=== PATIENT | female | born 1965 | race Caucasian/White ===

== ENCOUNTER → 2017-12-29 15:59 | Outpatient (CLI) | payer BC, SELFPAY ==
[2017-12-30 08:23] LABS: Vitamin D,25 Hydroxy 16.8 ng/mL (29.95-100.01)
== END ==
PROVIDERS: Visit Provider Obstetrics & Gynecology
DX: Z78.0 Asymptomatic menopausal state (principal)
CPT/HCPCS: 36415; 82306

== ENCOUNTER → 2018-11-29 09:52 | Outpatient (CLI) | payer BC, SELFPAY ==
--- NOTE | 2018-11-29 09:59 | BI_ITS ---
MAMMOGRAPHY - BILATERAL SCREENING REASON FOR EXAM: Female, 53 years old. Routine annual screening examination. PERTINENT HISTORY: Grandmother with breast cancer. TECHNIQUE: Digital bilateral breast susan (3D mammographic acquisition) in the CC and MLO projections. 2-D mediolateral oblique (MLO) and craniocaudad (CC) views of both breasts were obtained. CAD: Full Field Digital Mammography with Computer Added Detection was performed. COMPARISON: Comparison is made with prior study dated November 05, 2016 and May 22, 2013. FINDINGS: Breast Composition: There are scattered areas of fibroglandular density. There are no dominant masses or suspicious calcifications. Stable 5 mm well-defined nodule in the lateral upper aspect of the left breast. Prior ultrasound demonstrated this to be a small cyst. No other significant abnormalities are identified. There has been no significant change since the prior study. BI/SCREENING MAMM (CAD), BILAT IMPRESSION: Stable bilateral screening mammogram. Yearly follow-up mammogram recommended. (A) ASSESSMENT CATEGORY: BIRADS Category 2: Benign. A letter regarding these results will be sent to the patient by the facility within 30 days. Approximately 10% of breast cancers are not detected by mammography. A normal mammogram should not delay biopsy of a clinically suspicious abnormality. [id number] Electronically Signed: Lokesh Maldonado, at 12:36 EDT , Service support ,
== END ==
PROVIDERS: Family Provider Family Medicine; PCP Family Medicine; Referring Provider Obstetrics & Gynecology; Visit Provider Obstetrics & Gynecology
DX: Z12.31 Encounter for screening mammogram for malignant neoplasm of breast (principal)
CPT/HCPCS: 77063; 77067

== ENCOUNTER → 2019-07-31 12:08 | Outpatient (CLI) | payer BC, SELFPAY ==
[2019-04-10 12:36] VITALS: BMI 30.7
== END ==
LOC: MFPLAB 12:09 → LABSPEC 12:10
PROVIDERS: Family Provider Family Medicine; PCP Family Medicine; Referring Provider Family Medicine; Visit Provider Family Medicine
DX: N39.0 Urinary tract infection, site not specified (principal)
CPT/HCPCS: 87086; 87088

== ENCOUNTER → 2020-03-31 15:47 | Outpatient (CLI) | payer OTHER, SELFPAY ==
[2019-04-10 12:36] VITALS: BMI 30.7
[2020-03-31 17:51] LABS: Absolute Lymphocyte Count 2.21 X10^3/uL (0.83-4.51); Basophil# 0.05 X10^3/uL; Basophil% 0.5 % (0-1); Eosinophil# 0.12 X10^3/uL; Eosinophils% 1.3 % (0-5); Hematocrit 38.1 % (37-47); Lymphocyte # 2.21 X10^3/ul (4.0); Lymphocyte % 24.2 % (19-41); Mean Corp Hgb Conc 31.5 g/dL (32-36); Mean Corpuscular Volume 95.3 fL (81-99); Mean Platelet Vol. 10.6 fl (6.2-12.0); Monocyte# 0.73 X10^3/uL; NRBC Flagged by Analyzer 0 % (0-5); Neutrophil # 5.99 X10^3/uL (2.7-7.7); Neutrophil % 65.7 % (47-70); Platelet Count 276 K/mm3 (150-450); RBC Distribution Width CV 12.4 % (11.6-14.6); RBC Distribution Width SD 43.5 fl (35.1-43.9); White Blood Count 9.1 K/mm3 (4.4-11.0)
== END ==
PROVIDERS: PCP Family Medicine; Referring Provider Family Medicine; Visit Provider Family Medicine
DX: R10.9 Unspecified abdominal pain (principal)
CPT/HCPCS: 36415; 85025

== ENCOUNTER → 2020-04-01 11:57 | Outpatient (CLI) | payer OTHER, SELFPAY ==
[2019-04-10 12:36] VITALS: BMI 30.7
--- NOTE | 2020-04-01 12:05 | CT_ITS ---
STUDY: CT ABDOMEN AND PELVIS WITH CONTRAST REASON FOR EXAM: Female, 54 years old. RLQ PAIN X 1 MONTH. RADIATION DOSAGE (If Supplied By Facility): CTDIvol = ( 14.60 ) mGy, DLP = ( 895.91 ) mGycm TECHNIQUE: Transaxial images were obtained from the dome of the diaphragm to the symphysis pubis with oral contrast. Oral and amp; IV Gastrografin and amp; 100mL Isovue-300 was administered. Sagittal and coronal images were reconstructed. Individualized dose optimization techniques were used for this CT. COMPARISON: None. FINDINGS: The visualized lung bases are unremarkable. The visualized portions of the heart are within normal limits. Normal liver. Normal gallbladder and extrahepatic biliary system. Normal spleen. Normal pancreas. Normal bilateral adrenal glands. Normal right kidney. Normal left kidney. There is a small hiatal hernia. Normal small intestine. Moderate amount of fecal material is seen in the colon. There are scattered colonic diverticula consistent with diverticulosis. The appendix is visualized and appears normal. Normal abdominal aorta. Normal inferior vena cava. Normal retroperitoneum. Normal urinary bladder. Small bilateral inguinal hernias containing fat more prominent on the right side. Small umbilical hernia containing fat. Normal osseous structures. CT/Abdomen/Pelvis WITH Contrast IMPRESSION: Scattered sigmoid diverticula. No acute abnormality is seen. Electronically Signed: Lokesh Maldonado, at 14:53 EDT , Service support ,
== END ==
LOC: CT 11:59
PROVIDERS: PCP Family Medicine; Referring Provider Family Medicine; Visit Provider Family Medicine
DX: R10.9 Unspecified abdominal pain (principal)
CPT/HCPCS: 74177; Q9967; A4216

== ENCOUNTER 2020-11-20 10:09 | Outpatient (RCR) | payer BC, SELFPAY ==
[2019-04-10 12:36] VITALS: BMI 30.7
[2020-11-20] MEDS: COVID-19 VACC, MRNA(PFIZER)/PF 30 MCG/0.3 ML SYRINGE IM (12:01)
[2020-12-11] MEDS: COVID-19 VACC, MRNA(PFIZER)/PF 30 MCG/0.3 ML SYRINGE IM (12:10)
== END 2020-11-20 23:59 ==
LOC: IMMUN 10:09
PROVIDERS: PCP Family Medicine; Visit Provider Family Medicine
DX: Z23 Encounter for immunization (principal)
CPT/HCPCS: 0001A; 0002A; 91300

== ENCOUNTER → 2021-01-27 14:03 | Outpatient (CLI) | payer BC, SELFPAY ==
[2019-04-10 12:36] VITALS: BMI 30.7
[2021-01-27 16:17] LABS: Absolute Neutrophil Count 4.8 X10^3/uL (2.0-7.7); Basophil# 0.05 X10^3/uL; Basophil% 0.7 % (0-1); Eosinophil# 0.16 X10^3/uL; Eosinophils% 2.1 % (0-5); Hematocrit 36.6 % (37-47); Hemoglobin 11.5 g/dL (12.0-15.0); Lymphocyte % 26.4 % (19-41); Mean Corp Hgb Conc 31.4 g/dL (32-36); Mean Corpuscular Hgb 28.6 pg (27.0-32.0); Mean Platelet Vol. 10.9 fl (6.2-12.0); Monocyte# 0.52 X10^3/uL; Monocyte% 6.9 % (0-10); NRBC Flagged by Analyzer 0 % (0-5); Neutrophil # 4.81 X10^3/uL (2.7-7.7); Neutrophil % 63.2 % (47-70); Platelet Count 282 K/mm3 (150-450); RBC Distribution Width CV 12.8 % (11.6-14.6); RBC Distribution Width SD 42.4 fl (35.1-43.9); Red Blood Count 4.02 M/mm3 (4.2-5.4); White Blood Count 7.6 K/mm3 (4.4-11.0)
[2021-01-27 16:36] LABS: ALB/GLOB Ratio 0.9 RATIO (0.9-2.4); AST(SGOT) 15 U/L (15-37); Alanine Aminotransfer ALT/SGPT 15 U/L (13-56); Albumin, Serum 3.3 g/dL (3.2-5.0); Alkaline Phosphatase 114 U/L (45-117); Anion Gap 5 (5-15); BUN 19 mg/dL (7-18); BUN/Creat Ratio 25.4 RATIO (10-20); Calcium,Total 8.7 mg/dL (8.5-10.1); Chloride 108 mmol/L (98-107); Creatinine, Serum 0.75 mg/dL (0.55-1.02); EST Glomerular Filtration Rate 85 mL/min (>60); Est Glom Filt Rate - Afr Amer 103 mL/min (>60); Globulin 3.8 g/dL (2.2-4.2); Glucose 125 mg/dL (74-106); Potassium 3.6 mmol/L (3.5-5.1); Protein, Total 7.1 g/dL (6.4-8.2); Sodium Level 142 mmol/L (136-145); Thyroid Stim Hormone (TSH) 4.09 uIU/mL (0.358-3.74)
== END ==
PROVIDERS: PCP Family Medicine; Referring Provider Family Medicine; Visit Provider Family Medicine
DX: R60.9 Edema, unspecified (principal)
CPT/HCPCS: 36415; 80053; 84443; 85025

== ENCOUNTER → 2021-03-27 16:23 | Outpatient (CLI) | payer BC, SELFPAY ==
[2019-04-10 12:36] VITALS: BMI 30.7
[2021-03-27 17:48] LABS: T4 Total, Thyroxin 10.8 ug/dL (4.8-13.9); Thyroid Stim Hormone (TSH) 1.53 uIU/mL (0.358-3.74)
== END ==
PROVIDERS: PCP Family Medicine; Referring Provider Family Medicine; Visit Provider Family Medicine
DX: E03.9 Hypothyroidism, unspecified (principal)
CPT/HCPCS: 36415; 84436; 84443

== ENCOUNTER → 2022-02-16 | Outpatient (CLI) | payer BC, SELFPAY | END | disposition home or self-care (01) | LOC: LABSPEC 17:42 | PROVIDERS: PCP Family Medicine; Visit Provider Nurse Practitioner Family | DX: N39.0 Urinary tract infection, site not specified (principal) | CPT/HCPCS: 87086; 87088; 87186 ==

== ENCOUNTER → 2022-03-02 | Outpatient (CLI) | payer OTHER, SELFPAY ==
[2022-03-02 18:59] LABS: T4 Total, Thyroxin 10.4 ug/dL (4.8-13.9); Thyroid Stim Hormone (TSH) 2.64 uIU/mL (0.358-3.74)
== END | disposition home or self-care (01) ==
PROVIDERS: PCP Family Medicine; Visit Provider Family Medicine
DX: E03.9 Hypothyroidism, unspecified (principal)
CPT/HCPCS: 36415; 84436; 84443

== ENCOUNTER → 2022-09-07 | Outpatient (CLI) | payer OTHER, SELFPAY ==
[2022-09-07 18:05] LABS: Absolute Lymphocyte Count 2.31 X10^3/uL (0.83-4.51); Absolute Neutrophil Count 6.9 X10^3/uL (2.0-7.7); Basophil# 0.07 X10^3/uL; Basophil% 0.7 % (0-1); Eosinophil# 0.16 X10^3/uL; Eosinophils% 1.5 % (0-5); Hemoglobin 9.7 g/dL (12.0-15.0); Lymphocyte # 2.31 X10^3/ul (0.83-4.51); Lymphocyte % 21.8 % (19-41); Mean Corp Hgb Conc 29.4 g/dL (32-36); Mean Corpuscular Hgb 23.8 pg (27.0-32.0); Mean Corpuscular Volume 80.9 fL (81-99); Mean Platelet Vol. 10.3 fl (6.2-12.0); Monocyte# 1.13 X10^3/uL; Monocyte% 10.6 % (0-10); NRBC Flagged by Analyzer 0.3 % (0-5); Neutrophil % 64.9 % (47-70); Platelet Count 427 K/mm3 (150-450); RBC Distribution Width CV 14.1 % (11.6-14.6); RBC Distribution Width SD 41.7 fl (35.1-43.9); Red Blood Count 4.08 M/mm3 (4.2-5.4); White Blood Count 10.6 K/mm3 (4.4-11.0)
[2022-09-07 19:02] LABS: ALB/GLOB Ratio 0.9 RATIO (0.9-2.4); AST(SGOT) 14 U/L (15-37); Alanine Aminotransfer ALT/SGPT 21 U/L (13-56); Albumin, Serum 3.7 g/dL (3.2-5.0); Alkaline Phosphatase 122 U/L (45-117); Anion Gap 6 (5-15); BUN 25 mg/dL (7-18); BUN/Creat Ratio 30.1 RATIO (10-20); Calcium,Total 8.8 mg/dL (8.5-10.1); Chloride 108 mmol/L (98-107); Creatinine, Serum 0.83 mg/dL (0.55-1.02); EST Glomerular Filtration Rate 75 mL/min (>60); Est Glom Filt Rate - Afr Amer 91 mL/min (>60); Globulin 3.9 g/dL (2.2-4.2); Glucose 93 mg/dL (74-106); Potassium 4.2 mmol/L (3.5-5.1); Protein, Total 7.6 g/dL (6.4-8.2); Sodium Level 141 mmol/L (136-145); Thyroid Stim Hormone (TSH) 3.41 uIU/mL (0.358-3.74)
== END | disposition home or self-care (01) ==
PROVIDERS: PCP Family Medicine; Referring Provider Family Medicine; Visit Provider Family Medicine
DX: R42 Dizziness and giddiness (principal)
CPT/HCPCS: 36415; 80053; 84443; 85025

== ENCOUNTER 2023-08-01 16:23 | Emergency (ER) | payer OTHER, SELFPAY ==
[2023-08-01 16:24] VITALS: BP 164/86; PULSE 102; RESP 18; TEMP 36; O2SAT 98; BMI 37.8
[2023-08-01 16:29] VITALS: O2SAT 97
--- NOTE | 2023-08-01 16:29 | EKG12_ITS ---
Test Reason : cp Blood Pressure : / mmHG Vent. Rate : 097 BPM Atrial Rate : 097 BPM P-R Int : 156 ms QRS Dur : 076 ms QT Int : 370 ms P-R-T Axes : 061 078 074 degrees QTc Int : 469 ms Normal sinus rhythm Normal ECG Confirmed by SELMA VÁZQUEZ, MARIBELL ([id number]), editor greeting card ALEXA ARCE ([id number]) on 08/02/2023 10:50:08 AM Referred By: Confirmed By:MARIBELL HAHN MD
--- NOTE | 2023-08-01 16:29 | RAD_ITS ---
INDICATION: chest pain EXAMINATION/TECHNIQUE: X-RAY - XR Chest 1 View COMPARISON: None. FINDINGS: The lungs are clear. The cardiomediastinal silhouette is unremarkable. No pleural effusion or pneumothorax. No acute osseous abnormalities. Hiatal hernia. RAD/Chest 1 View (Portable) IMPRESSION: No acute radiographic abnormalities. Hiatal hernia. Electronically Signed: Andreas Melendez MD at 18:45 EST ,
--- NOTE | 2023-08-01 16:55 | ED.VIS.CHEST ---
HPI History of Present Illness Chief Complaint: Chest Pain Informant: patient Onset/Context/Timing Onset: Today and Hours Activity at onset: gradual Timing: Intermittent Quality: Positive for - (Pinching) Location: Left Chest Current Severity: Gone Maximum Severity: Mild Worsened By: Nothing Relieved By: Nothing Associated Symptoms: Negative for Nausea, Vomiting, Diaphoresis, Dyspnea, Cough, Fever, Lightheadedness, Acid Reflux or Palpitations Narrative Narrative: 58-year-old female history of hypothyroidism. Work today around 330 and got pinching discomfort to the left side of her chest. Says this would come and go. Nothing particular made it better or worse. Not associated with exertion. She had a prior history of this and it was associated with anxiety. Denies any history of DVT or PE. She has had recent travel 6 hours to [place] and 6 hours back. Denies any calf pain or hemoptysis. No pleuritic chest discomfort. She has no cardiac history but had a brother in the past year of an NC that was younger than her. She has had a stress test years ago that was negative. Prior Similar Symptoms: Yes Recent Illness/Hospitalization: No CVD Risk Factors: Positive for Family History 1' </=55; Negative for Hypertension, Diabetes, Hypercholesterolemia or Smoking PE Risk Factors: Positive for Recent Travel/Surgery; Negative for Recent Immobilization, Prior DVT or PE, Cancer or OCP + Smoking + >/=35 TAD Risk Factors: Negative for Marfan's Syndrome [facility] Medical History (Updated 08/01/23 @ 20:[address] Olaf Castelan MD) Hypothyroid Home Medications estradiol 2 mg tablet 2 mg DAILY 12/12/14 [History Last Taken Unknown] ibuprofen 200 mg tablet 200 mg PO Q4H PRN PRN Pain 12/12/14 [History Last Taken Unknown] apixaban 5 mg (74 tabs) tablets in a dose pack (Eliquis DVT-PE Treat 30D Start) 5 mg PO BID 30 days #60 tabs 08/01/23 [Rx Last Taken Unknown] Allergy/AdvReac Type Severity Reaction Status Date / Time amoxicillin Allergy Unknown Verified 08/01/23 16:24 Penicillins Allergy Unknown Verified 08/01/23 16:24 Social History Smoking Status: Unknown if ever smoked ROS ROS ED ROS Narrative Atypical chest pain today. Not exertional. No other recent symptoms. No shortness of breath. Review of Systems ROS Unobtainable: Denies due to encephalopathy Constitutional Constitutional ED: Denies chills or fever(s) Eyes Eyes: Reports none ENT ENT ED: Denies ear pain Cardiovascular Cardiovascular: Reports as per HPI and chest pain; Denies palpitations or racing heartbeat Respiratory/Chest Respiratory/Chest: Denies cough, dyspnea or dyspnea on exertion Gastrointestinal Gastrointestinal: Denies abdominal pain, constipation, diarrhea, melena or nausea Genitourinary Genitourinary ED: Denies dysuria or hematuria Musculoskeletal Musculoskeletal: Denies arthralgias, back pain, myalgias or neck pain Integumentary Denies abscess Neurologic Neurologic: Denies headache(s) Psychiatric Psychiatric: Denies depression Endocrine Endocrinology: Denies cold intolerance Hematologic/Lymphatic Hematologic/Lymphatic: Denies easy bleeding Allergic/Immunologic Allergic/Immunologic ED: Denies mouth swelling, tongue swelling or urticaria EXAM Physical Exam Narrative Exam Narrative: Well-appearing 58-year-old female. Vital signs are stable afebrile. Pulse ox 98% on room air no signs hypoxia. H EENT exam unremarkable. Neck nontender no JVD. Lungs clear to auscultation bilaterally. Heart regular rhythm rate about 100 no murmur. Chest wall she does have reproducible left-sided parasternal chest wall tenderness with says it felt the same discomfort. No ecchymosis or bruising. No subcu air crepitus. Abdomen soft nontender. Moving all 4 extremities. Equal symmetrical radial pulses. 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 Calves are nontender without edema or cords. Neurologically she is awake alert. Moving all 4 extremities. Const Vital Signs: 08/01/23 16:24 08/01/23 16:29 08/01/23 17:03 Temperature 96.8 F L Temperature Source Temporal Pulse Rate 102 H 87 Respiratory Rate 18 16 Respiratory Effort Blood Pressure 164/86 H 125/86 H Blood Pressure Mean 112 99 Pulse Ox 98 97 98 Oxygen Delivery Method Room Air Room Air Room Air 08/01/23 16:50 Temperature Temperature Source Pulse Rate Respiratory Rate Respiratory Effort Normal Blood Pressure Blood Pressure Mean Pulse Ox Oxygen Delivery Method Positive well nourished and well developed; Negative for cachectic, contractures or unkempt General Appearance ED: well developed and NAD; Negative for unkempt, cachectic, contractures or pallor Nutritional Appearance: Negative for cachectic HEENT Reports moist mucous membranes normocephalic and atraumatic; Negative for trauma or tenderness Eyes PERRL and EOMs intact bilaterally General Eye ED: Negative for pale conjunctiva, scleral icterus or other Neck no lymphadenopathy, supple and no JVD General: Negative for tenderness Chest Wall inspection of chest normal; Negative for palpation of chest normal Chest Narrative: Mild chest wall tenderness left parasternal. Chest: Negative for tenderness Resp normal respiratory effort and clear to auscultation bilaterally Effort and Inspection: Negative for respiratory distress Auscultation: Negative for rales, rhonchi or wheezes Cardio regular rate, regular rhythm, S1 normal heart sound, S2 normal heart sound and no murmurs Rate: Negative for bradycardia or tachycardic Rhythm: Negative for abnormal rhythm Peripheral Pulses: pulses 2+ throughout GI normal to inspection, nondistended, normoactive bowel sounds, soft to palpation, non-tender and non-distended Back/Spine no CVA tenderness and no thoracic nor lumbar tenderness General Back: Negative for CVA tenderness Cervical Spine: Negative for cervical spine tenderness Extremity normal to inspection General Extremety ED: Negative for edema or pulses abnormal General Extremity: Negative for edema or pulses abnormal Neuro oriented x3, CN's II-XII intact bilaterally and no sensory deficits noted Sensorium / Orientation: awake, alert, oriented to person, oriented to place and oriented to time; Negative for confused, lethargic or stuporous Motor Exam: strength 5/5 throughout Psych mental status grossly normal Appearance: Negative for unkempt Attitude: No agitated Mood & Affect: Negative for depressed, anxious or tearful Skin no rashes or lesions noted and no wounds General Skin Exam: Negative for jaundice or pallor Rashes: No rashes noted Trauma: Negative for abrasion or laceration MDM MDM MDM Narrative Medical decision making narrative: 58-year-old female with atypical nonexertional chest pain. Has had no recent exertional symptoms. She undergo cardiac workup. She also had recent travel with no clinically this does not sound like a PE. D-dimer will be obtained also. She does have family history of cardiac disease and a younger brother who of an NC in the last year. Repeat exam patient is doing well at both 6 PM and 8:15 PM. The CTA of her chest shows bilateral lower lobe PEs. She will be started on Eliquis tonight. Discharged home. Outpatient follow-up with her primary care physician. I did speak to Dr. Ruy Sahni on-call for the patient's primary care physician to ensure close follow-up. Patient also instructed to ensure she is taking her iron because her hemoglobin is only 7.8 and she is at risk of needing a transfusion if it gets any worse. History & Record Review Discussion w/independent historian: Patient Additional record(s) reviewed:: Prior inpatient record, Prior outpatient record, Prior ED visit and Prior labs Lab Data Attestation: I reviewed the patient's lab results. Lab results narrative: CBC shows a white count of 9.4. H&H is 7.8 and 28.5. Platelets 358. D-dimer is elevated 0.66. Troponin is normal at 4. Electrolytes show a gap of 5 BUN and creatinine 19 and 1. Glucose 97. Chest x-ray is normal. Labs: Laboratory Results - last 24 hr 08/01/23 08/01/23 16:50 18:50 WBC 9.4 RBC 3.77 L Hgb 7.8 L Hct 28.5 L MCV 75.6 L MCH 20.7 L MCHC 27.4 L RDW Std Deviation 45.6 H RDW Coeff of Snow 16.8 H Plt Count 358 MPV 9.5 Immature Gran % (Auto) 0.600 Neut % (Auto) 64.2 Lymph % (Auto) 23.2 [place] % (Auto) 9.3 Eos % (Auto) 2.0 Baso % (Auto) 0.7 Absolute Neuts (auto) 6.1 Absolute Lymphs (auto) 2.19 Nucleated RBC % 0 D-Dimer Quant (PE/DVT) 0.66 H* Sodium 140 Potassium 3.7 Chloride 108 H Carbon Dioxide 27.0 Anion Gap 5 BUN 19 H Creatinine 1.02 Estim Creat Clear Calc 53.44 Est GFR (MDRD) Af Amer 71 Est GFR (MDRD) Non-Af 59 L BUN/Creatinine Ratio 18.6 Glucose 97 Calcium 8.4 L Troponin I High Sens 4 7 Radiography Chest X-Ray - ED: 1 View, Read by ED Physician, Normal, Heart, Lungs, Mediastinum, Bony Structures and No Acute Disease Diagnostic Testing: Clinical Impression(s) from Imaging Studies Chest X-Ray 08/01/23 16:29 IMPRESSION: No acute radiographic abnormalities. Hiatal hernia. Electronically Signed: Andreas Melendez MD at 18:45 EST , Chest CTA 08/01/23 18:17 IMPRESSION: Small volume nearly occlusive acute pulmonary emboli in the bilateral lower lobe subsegmental pulmonary arteries. No evidence of right heart strain. Electronically Signed: Andreas Melendez MD at 19:51 EST , Chest x-ray, portable, single view shows no acute abnormality. Normal cardiac silhouette. Normal lung green. Normal mediastinum. Rhythm Strip Rhythm Strip: Sinus Rhythm Rate: 97 Ectopy: None EKG Initial EKG: Attestation: I personally reviewed and interpreted this EKG as follows: Interpretation: Sinus Rhythm and No Acute Injury Pattern Comments: Normal sinus rhythm rate of 97 no acute signs of NC or ischemia. Unremarkable EKG. Discharge Plan Triage Chief Complaint: Chest Pain ED Provider: Olaf Castelan Dx/Rx/DC Orders Clinical Impression: Chronic anemia, Bilateral pulmonary embolism, Chest pain Instructions: Pulmonary Embolism, Anemia Prescriptions: New Eliquis DVT-PE Treat 30D Start 5 mg (74 tabs) tablets,dose pack 5 mg PO BID 30 Days Qty: 60 0RF No Action ibuprofen 200 MG tablet 200 mg PO Q4H PRN PRN (Reason: Pain) estradiol 2 MG tablet 2 mg DAILY Patient Comments: Primary Care Provider: Kellie Hudson Referrals: Kellie Hudson MD [Primary Care Provider] - As soon as possible Activity Restrictions/Additional Instructions: You have blood clots in your lower lungs. You will be started on the blood thinner Eliquis. If you would hit your head or have any significant bleeding or large bruising you need to be reevaluated. Make sure to get back on your iron as prescribed because your hemoglobin today was only 7.8. If it gets any lower you might need a blood transfusion. Call and follow-up with your primary care physician Dr. Hudson is soon as possible. Most likely you will be on the blood thinning medication for around 6 months. Disposition Disposition: Home, Self Care
[2023-08-01 17:03] VITALS: BP 125/86; PULSE 87; RESP 16; O2SAT 98
[2023-08-01 17:07] LABS: Absolute Lymphocyte Count 2.19 X10^3/uL (0.83-4.51); Absolute Neutrophil Count 6.1 X10^3/uL (2.0-7.7); Basophil# 0.07 X10^3/uL; Basophil% 0.7 % (0-1); Eosinophil# 0.19 X10^3/uL; Hematocrit 28.5 % (37-47); Hemoglobin 7.8 g/dL (12.0-15.0); Lymphocyte # 2.19 X10^3/ul (0.83-4.51); Lymphocyte % 23.2 % (19-41); Mean Corp Hgb Conc 27.4 g/dL (32-36); Mean Corpuscular Hgb 20.7 pg (27.0-32.0); Mean Corpuscular Volume 75.6 fL (81-99); Mean Platelet Vol. 9.5 fl (6.2-12.0); Monocyte# 0.88 X10^3/uL; Monocyte% 9.3 % (0-10); NRBC Flagged by Analyzer 0 % (0-5); Neutrophil # 6.05 X10^3/uL (2.7-7.7); Neutrophil % 64.2 % (47-70); Platelet Count 358 K/mm3 (150-450); RBC Distribution Width CV 16.8 % (11.6-14.6); RBC Distribution Width SD 45.6 fl (35.1-43.9); Red Blood Count 3.77 M/mm3 (4.2-5.4); White Blood Count 9.4 K/mm3 (4.4-11.0)
[2023-08-01 17:29] LABS: D-Dimer Quantitative (DVT/PE) 0.66 FEU/ug/m (0.27-0.49)
[2023-08-01 17:30] LABS: Anion Gap 5 (5-15); BUN 19 mg/dL (7-18); BUN/Creat Ratio 18.6 RATIO (10-20); Calcium,Total 8.4 mg/dL (8.5-10.1); Chloride 108 mmol/L (98-107); Creatinine, Serum 1.02 mg/dL (0.55-1.02); EST Glomerular Filtration Rate 59 mL/min (>60); Est Glom Filt Rate - Afr Amer 71 mL/min (>60); Estimated Creatinine Clearance 53.44 ml/min; Glucose 97 mg/dL (74-106); Potassium 3.7 mmol/L (3.5-5.1); Sodium Level 140 mmol/L (136-145); Troponin-I HS 4 pg/mL (3.0-54.0)
--- NOTE | 2023-08-01 18:17 | CT_ITS ---
INDICATION: cp and elevated d-dimer EXAMINATION: CTA Chest WO/W Contrast Injection TECHNIQUE: Helically acquired images were obtained of the chest following administration of IV contrast. A radiation dose optimization technique was used for this scan. 3D postprocessing images including MIPS were reviewed. IV Contrast dosage and agent: IV 100mL Isovue-370 COMPARISON: None. FINDINGS: Lungs: Unremarkable Mediastinum: The cardiomediastinal silhouette is not enlarged. No mediastinal, hilar or axillary adenopathy. Mild aortic arch and coronary artery calcifications. Small volume nearly occlusive clot seen in the bilateral lower lobe subsegmental pulmonary arteries. No evidence of right heart strain. Pleura: Unremarkable Bones/Soft tissues: Mild scattered degenerative changes of the visualized spine. Upper abdomen: No visualized abnormalities in the upper abdomen. CT/CTA Chest W/WO Contrast IMPRESSION: Small volume nearly occlusive acute pulmonary emboli in the bilateral lower lobe subsegmental pulmonary arteries. No evidence of right heart strain. Electronically Signed: Andreas Melendez MD at 19:51 EST ,
[2023-08-01 19:11] LABS: Troponin-I HS 7 pg/mL (3.0-54.0)
[2023-08-01 20:23] VITALS: PULSE 87; RESP 22; O2SAT 97
[2023-08-01 20:56] VITALS: BP 131/63; PULSE 75; RESP 14; O2SAT 97
== END 2023-08-01 21:28 | disposition home or self-care (01) ==
PROVIDERS: Emergency Provider Emergency Medicine; PCP Family Medicine; Visit Provider Emergency Medicine
DX: R07.9 Chest pain, unspecified (principal); I26.99 Other pulmonary embolism without acute cor pulmonale; D64.9 Anemia, unspecified
CPT/HCPCS: 71045; 71275; 80048; 84484; 85025; 85379; 93005; 99284; Q9967; A4216

== ENCOUNTER 2023-08-08 17:34 | Emergency (ER) | payer OTHER, SELFPAY ==
[2023-08-08 17:36] VITALS: BP 151/71; PULSE 82; RESP 15; TEMP 36.2; O2SAT 98; BMI 37.3
[2023-08-08 18:15] VITALS: BP 126/68; PULSE 76; RESP 15; O2SAT 99
--- NOTE | 2023-08-08 18:35 | ED.VIS.CHEST ---
HPI History of Present Illness Chief Complaint: Chest Pain Narrative Narrative: 58-year-old female past medical history of anemia, states she was here in the emergency department last week and diagnosed with bilateral pulmonary emboli. She started Eliquis with a loading dose. She had been seen because she was having chest pains. She has not missed a dose of her Eliquis, and she was also told that she had a hemoglobin of 7.8 when she was discharged from the emergency department. She followed up with her primary care provider who told her that the chest pain should go away after approximately 1 week, but today she felt like her chest pains were worse. She became lightheaded and dizzy, and states she had pain going down her left arm as well. She felt short of breath. She denies any black tarry stool or any bleeding diathesis. She presents for evaluation of her continued chest pain with recent diagnosis of bilateral pulmonary emboli and anemia. No exacerbating or alleviating factors. [facility] Medical History Hypothyroid Home Medications estradiol 2 mg tablet 2 mg DAILY 12/12/14 [History Last Taken Unknown] ibuprofen 200 mg tablet 200 mg PO Q4H PRN PRN Pain 12/12/14 [History Last Taken Unknown] apixaban 5 mg (74 tabs) tablets in a dose pack (Eliquis DVT-PE Treat 30D Start) 5 mg PO BID 30 days #60 tabs 08/01/23 [Rx Last Taken Unknown] Allergy/AdvReac Type Severity Reaction Status Date / Time amoxicillin Allergy Unknown Verified 08/08/23 17:36 Penicillins Allergy Unknown Verified 08/08/23 17:36 Social History Smoking Status: Never smoker ROS ROS ED ROS Narrative Constitutional: No fever, no chills. HEENT: No sore throat. No neck pain. No loss of vision. No rhinorrhea. Cardiovascular: Positive chest pain. No palpitations. No pedal edema. Respiratory: No cough, positive shortness of breath. Abdominal: No abdominal pain. No nausea. No vomiting. Genitourinary: No dysuria. No hematuria. Musculoskeletal: No myalgias. No arthralgias. Neurologic: No headaches. Positive dizziness and lightheadedness. Paresthesia of left arm. Skin: No rash. No change in color. Psychiatric: No depression. No anxiety. EXAM Physical Exam Narrative Exam Narrative: Afebrile. Vital signs noted. HEENT: Normocephalic. Atraumatic. PERRL, EOMI. Neck soft and supple. No point tenderness or step off. Cardiovascular: Regular rate and rhythm. No murmurs, rubs, or gallops appreciated. Respiratory: No tachypnea. Lungs clear to auscultation bilaterally. Gastrointestinal: Abdomen soft, nontender, with normoactive bowel sounds. No rebound or guarding. Neurological: Awake. Alert. Nonfocal, nonlateralizing. Skin: No rash. Normal color. No pallor. Musculoskeletal: No pedal edema. Full range of motion extremities. Const Vital Signs: 08/08/23 17:36 08/08/23 18:40 08/08/23 18:42 Temperature 97.1 F L Temperature Source Temporal Pulse Rate 82 Respiratory Rate 15 Respiratory Effort Normal Non-Labored Blood Pressure 151/71 H Blood Pressure Mean 97 Pulse Ox 98 Oxygen Delivery Method Room Air Room Air 08/08/23 18:15 08/08/23 19:57 Temperature Temperature Source Pulse Rate 76 74 Respiratory Rate 15 16 Respiratory Effort Blood Pressure 126/68 H 119/78 Blood Pressure Mean 82 91 Pulse Ox 99 93 Oxygen Delivery Method Room Air MDM MDM MDM Narrative Medical decision making narrative: I reviewed the patient's prior records. Her prior laboratory work does show she had a hemoglobin of 7.8. In the differential diagnosis is continued anemia causing her shortness of breath and lightheadedness. I will check a CBC to ensure that it is not worsening. Additionally, she can be having chest pains from her pulmonary emboli. There also may be in the differential slight anxiety component related to this. EKG was obtained and interpreted by myself independently as normal sinus rhythm at 84 bpm without ectopy or acute ST changes. No STEMI. I do not feel that she needs a repeat CTA of her chest as her pulse ox is 98% on room air and pulse is 82. Hence, I have low concern for saddle embolus because she has not missed a dose of her Eliquis and her pulmonary emboli are being treated. I will obtain a single troponin to help rule out heart strain or coronary artery disease/ischemia. Chest x-ray will be obtained to help rule out pneumothorax or pneumonia as a cause of her chest pains that are worsening, but these are lower on the differential because the history and physical does not support this. I reviewed her laboratory work and she has normal white count of 9.9, hemoglobin improved to 8.3 but still anemic. Platelet count normal at 376. Electrolyte panel shows chloride slightly elevated at 109 which I think is nonspecific, BUN of 19 with a normal creatinine of 0.9. High-sensitivity troponin is 6. Chest x-ray in 1 view interpreted by myself independently shows no evidence of pneumothorax or pneumonia. I do not feel antibiotics are indicated. Patient states she still has a headache upon repeat examination, and she declined any oral analgesics here stating she will take Tylenol at home. She will continue her Eliquis. I do not feel that she requires admission at this time. I feel she be discharged to follow-up with her primary care provider and continue her anticoagulant. Return instructions to the emergency department were reviewed. Disposition is discharged home in stable condition. History & Record Review Discussion w/independent historian: Patient Additional record(s) reviewed:: Prior ED visit and Prior labs Lab Data Attestation: I reviewed the patient's lab results. Labs: Laboratory Results - last 24 hr 08/08/23 18:40 WBC 9.9 RBC 3.92 L Hgb 8.3 L Hct 30.5 L MCV 77.8 L MCH 21.2 L MCHC 27.2 L RDW Std Deviation 50.2 H RDW Coeff of Snow 20.8 H Plt Count 376 MPV 10.0 Immature Gran % (Auto) 0.700 Neut % (Auto) 71.2 H Lymph % (Auto) 17.5 L [place] % (Auto) 8.1 Eos % (Auto) 1.8 Baso % (Auto) 0.7 Absolute Neuts (auto) 7.0 Absolute Lymphs (auto) 1.73 Nucleated RBC % 0 RBC Morphology N CHROM Anisocytosis RARE Microcytosis RARE Sodium 141 Potassium 3.9 Chloride 109 H Carbon Dioxide 26.0 Anion Gap 6 BUN 19 H Creatinine 0.92 Estim Creat Clear Calc 59.25 Est GFR (MDRD) Af Amer 80 Est GFR (MDRD) Non-Af 66 BUN/Creatinine Ratio 20.6 H Glucose 94 Calcium 8.7 Troponin I High Sens 6 Radiography Diagnostic Testing: Clinical Impression(s) from Imaging Studies Chest X-Ray 08/08/23 18:45 IMPRESSION: Large hiatal hernia. No acute pulmonary disease. Electronically Signed: Jorgito Carpio MD at 19:10 EST , Discharge Plan Triage Chief Complaint: Chest Pain ED Provider: Ernesto Schmidt Dx/Rx/DC Orders Clinical Impression: Bilateral pulmonary embolism, Chest pain Instructions: ED Chest Pain, Uncertain Cause, ED Pain, Acute, Uncertain Cause Prescriptions: No Action ibuprofen 200 MG tablet 200 mg PO Q4H PRN PRN (Reason: Pain) estradiol 2 MG tablet 2 mg DAILY Patient Comments: Eliquis DVT-PE Treat 30D Start 5 mg (74 tabs) tablets,dose pack 5 mg PO BID 30 Days Qty: 60 0RF Primary Care Provider: Kellie Hudson Referrals: Kellie Hudson MD [Primary Care Provider] - 3-5 Days if not improving Disposition Disposition: Home, Self Care
[2023-08-08] MEDS: 0.9% Normal Saline (1000mL) 1,000 ML 1000 ML IV (18:39)
--- NOTE | 2023-08-08 18:45 | RAD_ITS ---
INDICATION: chest pain EXAMINATION: Frontal view of the chest COMPARISON: Chest x-ray August 01, 2023. FINDINGS: Frontal view of the chest was obtained. The cardiac silhouette is not enlarged. No confluent airspace disease. No pneumothorax. Large hiatal hernia as before. No acute fracture identified. RAD/Chest 1 View (Portable) IMPRESSION: Large hiatal hernia. No acute pulmonary disease. Electronically Signed: Jorgito Carpio MD at 19:10 EST ,
[2023-08-08 19:14] LABS: Absolute Lymphocyte Count 1.73 X10^3/uL (0.83-4.51); Basophil# 0.07 X10^3/uL; Basophil% 0.7 % (0-1); Eosinophil# 0.18 X10^3/uL; Eosinophils% 1.8 % (0-5); Hematocrit 30.5 % (37-47); Hemoglobin 8.3 g/dL (12.0-15.0); Lymphocyte # 1.73 X10^3/ul (0.83-4.51); Lymphocyte % 17.5 % (19-41); Mean Corp Hgb Conc 27.2 g/dL (32-36); Mean Corpuscular Hgb 21.2 pg (27.0-32.0); Mean Corpuscular Volume 77.8 fL (81-99); Monocyte% 8.1 % (0-10); NRBC Flagged by Analyzer 0 % (0-5); Neutrophil # 7.04 X10^3/uL (2.7-7.7); Neutrophil % 71.2 % (47-70); POSITIVE MORPHOLOGY YES; Platelet Count 376 K/mm3 (150-450); RBC Distribution Width CV 20.8 % (11.6-14.6); RBC Distribution Width SD 50.2 fl (35.1-43.9); Red Blood Count 3.92 M/mm3 (4.2-5.4); White Blood Count 9.9 K/mm3 (4.4-11.0)
[2023-08-08 19:18] LABS: Differential Indicated SCAN CRITERIA MET
[2023-08-08 19:30] LABS: Anion Gap 6 (5-15); BUN 19 mg/dL (7-18); BUN/Creat Ratio 20.6 RATIO (10-20); Calcium,Total 8.7 mg/dL (8.5-10.1); Chloride 109 mmol/L (98-107); Creatinine, Serum 0.92 mg/dL (0.55-1.02); EST Glomerular Filtration Rate 66 mL/min (>60); Est Glom Filt Rate - Afr Amer 80 mL/min (>60); Estimated Creatinine Clearance 59.25 ml/min; Glucose 94 mg/dL (74-106); Potassium 3.9 mmol/L (3.5-5.1); Sodium Level 141 mmol/L (136-145); Troponin-I HS 6 pg/mL (3.0-54.0)
[2023-08-08 19:42] LABS: Anisocytosis RARE; Red Cell Morphology N CHROM NORMAL (NORM C&C)
[2023-08-08 19:43] LABS: Microcytosis RARE
[2023-08-08 19:57] VITALS: BP 119/78; PULSE 74; RESP 16; O2SAT 93
[2023-08-08 20:34] VITALS: BP 114/72; BP 114/74
== END 2023-08-08 20:42 | disposition home or self-care (01) ==
PROVIDERS: Emergency Provider Emergency Medicine; PCP Family Medicine; Visit Provider Emergency Medicine
DX: R07.9 Chest pain, unspecified (principal); I26.99 Other pulmonary embolism without acute cor pulmonale
CPT/HCPCS: 71045; 80048; 84484; 85025; 93005; 96360; 96361; 99283; J7030; A4216

== ENCOUNTER → 2023-10-25 | Outpatient (CLI) | payer OTHER, SELFPAY ==
[2023-10-25 15:26] LABS: Absolute Lymphocyte Count 2.08 X10^3/uL (0.83-4.51); Absolute Neutrophil Count 4.9 X10^3/uL (2.0-7.7); Basophil# 0.07 X10^3/uL; Basophil% 0.9 % (0-1); Eosinophil# 0.12 X10^3/uL; Eosinophils% 1.5 % (0-5); Hematocrit 41.6 % (37-47); Hemoglobin 12.9 g/dL (12.0-15.0); Lymphocyte # 2.08 X10^3/ul (0.83-4.51); Lymphocyte % 26.6 % (19-41); Mean Corpuscular Hgb 26.7 pg (27.0-32.0); Mean Corpuscular Volume 86.1 fL (81-99); Mean Platelet Vol. 10.5 fl (6.2-12.0); Monocyte# 0.67 X10^3/uL; Monocyte% 8.6 % (0-10); NRBC Flagged by Analyzer 0 % (0-5); Neutrophil # 4.85 X10^3/uL (2.7-7.7); Platelet Count 279 K/mm3 (150-450); RBC Distribution Width CV 18.1 % (11.6-14.6); RBC Distribution Width SD 58.4 fl (35.1-43.9); Red Blood Count 4.83 M/mm3 (4.2-5.4); White Blood Count 7.8 K/mm3 (4.4-11.0)
[2023-10-25 15:54] LABS: Vitamin D,25 Hydroxy 24.1 ng/mL
[2023-10-25 16:13] LABS: Iron 37 ug/dL (50-170); T4 Total, Thyroxin 10.5 ug/dL (4.8-13.9); Thyroid Stim Hormone (TSH) 3.87 uIU/mL (0.358-3.74)
== END | disposition home or self-care (01) ==
LOC: MTLAB 11:16
PROVIDERS: PCP Family Medicine; Referring Provider Family Medicine; Visit Provider Family Medicine
DX: D50.9 Iron deficiency anemia, unspecified (principal); E03.9 Hypothyroidism, unspecified; R25.2 Cramp and spasm
CPT/HCPCS: 36415; 82306; 83540; 84436; 84443; 85025

== ENCOUNTER 2023-12-16 05:59 | Day surgery (SDC) | payer OTHER, SELFPAY ==
[2023-12-16 06:29] VITALS: BP 127/82; PULSE 90; RESP 18; TEMP 36.3; O2SAT 99; BMI 35.9
[2023-12-16] MEDS: Lactated Ringers 1,000 ML 15 ML IV (06:37)
--- NOTE | 2023-12-16 06:48 | HP.PCM_ITS ---
History and Physical Date of Admission: 12/16/23 Intake Vital Signs 08/08/2317:36 11/20/2414:01 Height 5 ft 5 in 5 ft 5 in Weight: 222 lb 4 oz BMI 37.0 BP 132/84 H Blood Pressure Location Rt brachial Position Sitting Respiration 18 Pulse 86 Pulse Source Monitor Temp 97.5 F L Temp Source Temporal Pulse Oximetry (%) 97 Oxygen Delivery Method room air Intake Visit Reasons: Anemia Chief Complaint: anemia Glue Wheel Operator Required: No Is patient in pain?: No Allergies amoxicillin Allergy (Verified 11/21/23 15:02) UnknownPenicillins Allergy (Verified 11/21/23 15:02) Unknown Medications estradiol 2 mg tablet 2 mg DAILY 12/12/14 [History Confirmed 11/21/23] apixaban 5 mg (74 tabs) tablets in a dose pack (Eliquis DVT-PE Treat 30D Start) 5 mg PO BID 30 days #60 tabs 08/01/23 [Rx Confirmed 11/21/23] cholecalciferol (vitamin D3) 50 mcg (2,000 unit) capsule 50 mcg PO DAILY 11/21/23 [History Confirmed 11/21/23] PFSH Medical History (Updated 11/21/23 @ 15:00 by Sharyn Rodriguez LPN) Hypothyroid Surgical History (Updated 11/21/23 @ 15:00 by Sharyn Rodriguez LPN) H/O total hysterectomy Social History (Updated 11/21/23 @ 15:01 by Sharyn Rodriguez LPN) Smoking Status: Never smoker alcohol intake: current substance use type: does not use HPI HPI HPI: Patient is a 58-year-old female sent here for iron deficiency anemia. She reports she has never had a colonoscopy. She says she is not having any abdominal pain or gross blood in the stool. She recently had a PE and is on Eliquis. She does not have family history of colon cancer. ROS General General: Yes weight change (gain ) and fatigue; No appetite, colon cancer, breast cancer or weakness HEENT HEENT: No difficulty swallowing, eye injury, eye surgery, swollen glands or hoarseness Endo Endocrine: Yes thyroid disease; No diabetes mellitus, thyroid cancer, Hair loss, heat intolerance or cold intolerance Skin Skin: No rash or changing moles Musc Musculoskeletal: Yes back problems; No arthritis, rheumatoid arthritis, gout or joint pain Cardio Cardiovascular: No murmur, pacemaker, heart disease, atrial fibrillation, high blood pressure, heart attack, heart stent, palpitations, shortness of breat with exertion or chest pain Psych Psychiatric: Yes depression; No anxiety or hearing voices Resp Respiratory: No shortness of breath, No sleep apnea, Yes cough, No COPD, No asthma, No emphysema and No wheezing Gastro Gastrointestinal: No abdominal pain, No nausea or vomiting, No diarrhea, No constipation, No blood in stool, No acid reflux, No hemorrhoids, No ulcers, No gallbladder problem and No black,tarry stools Sanjay Hematologic: Yes blood thinners, No blood disorders, No bleeding, Yes anemia and Yes blood clots Neuro Neurologic: No weakness Exam Const General: cooperative Orientation: alert and oriented x3 HENMT Head: normal to inspection Neck Neck: normal visual inspection and full ROM Chest Chest palpation & inspection: normal inspection of the chest Resp Effort & Inspection: normal respiratory effort Auscultation: clear to auscultation bilaterally Cardio Rate: regular rate Rhythm: regular rhythm GI Inspection: non-distended Palpation: soft and nontender Skin General: no rashes or lesions noted Neuro General: patient alert and patient oriented x3 Extrem General: full ROM Psych Appearance: grossly normal Mental Status: mental status grossly normal Assessment and Plan Assessment and Plan (1) Anemia: Qualifiers: Anemia type: iron deficiency Iron deficiency anemia type: unspecified iron deficiency Qualified Code(s): D50.9 - Iron deficiency anemia, unspecified Plan: The patient has iron deficiency anemia and requires colonoscopy. She was sent for lab work last month and her hemoglobin was starting to come back up but since she has never had a scope I would recommend evaluation. I also discussed doing EGD with it to evaluate for anything bleeding in the stomach. She will hold her blood thinners for 2 days prior to surgery. I explained endoscopy in detail to the patient. I explained the risks including but not limited to stroke or heart attack with anesthesia, perforation of the GI tract, bleeding, infection. I explained that any of these could necessitate further emergency surgery. The patient understands and all questions were answered sufficiently. The patient wishes to proceed with procedure. Dillan Demarco MD Pager: [facility] [address] [place] [address] [address] [place] [address] Office: I have examined the patient and the H&P has been reviewed. There are no clinical changes since date of exam.
--- NOTE | 2023-12-16 07:30 | EGD_PTH ---
PATIENT: BOUCHRA HUERTA LOC: EN U#:[id number] AGE/SX: 58/F ROOM: RE12/16/[address]: Dr. Dillan Demarco MD : 1965 BED: DIS: 12/16/2023 SPEC #: [id number] RECD: 12/16/23 13:31 STATUS: REESE KELVIN #: [id number] LINH: 12/16/23 07:[address]: Dillan Demarco DEPT: SURGICAL PATHOLOGY RECD BY: Lula Dimas ENTERED: 12/16/23 14:22 SP TYPE: EGD BIOPSY OT DR: Dr. Kellie Hudson MD Tissues: A - Gastric mucous membrane B - Sigmoid colon biopsy Procedures: Surgery Specimen Level IV HEADER OPERATION: Colonoscopy, EGD and biopsy PRE-OP DIAGNOSIS: Anemia TISSUE SUBMITTED: A. Antral biopsy, B- Sigmoid polyp MICROSCOPIC DIAGNOSIS A. Gastric antrum, biopsy: Chronic gastritis. B. Sigmoid polyp, biopsy: Hyperplastic polyp with thermal artifact. /mr 12/19/2023 COMMENT A. The results of immunohistochemistry for Helicobacter pylori will be reported separately ([id number]). MICROSCOPIC DESCRIPTION Slides are reviewed. GROSS DESCRIPTION A. Received in fixative is one container labeled with the patient's name and designated Antral biopsy. The specimen consists of two irregular fragments of light cook soft tissue that in aggregate measure 0.6 x 0.3 x 0.1 cm. The specimen is totally submitted in one cassette. B. Received in fixative is one container labeled with the patient's name and designated Sigmoid polyp. The specimen consists of one irregular fragment of light cook soft tissue that measures 0.8 x 0.2 x 0.1 cm. The specimen is totally submitted in one cassette. /mr 12/16/23 TC:5 CPT:33246 x2
--- NOTE | 2023-12-16 07:30 | IMM_PTH ---
PATIENT: BOUCHRA HUERTA LOC: EN U#:[id number] AGE/SX: 58/F ROOM: RE12/16/[address]: Dr. Dillan Demarco MD : 1965 BED: DIS: 12/16/2023 SPEC #: [id number] RECD: 12/16/23 15:11 STATUS: REESE REGermain #: [id number] LINH: 12/16/23 07:[address]: Dillan Demarco DEPT: IMMUNOHISTOCHEMISTRY RECD BY: Kenan Marsh ENTERED: 12/16/23 15:11 SP TYPE: IMMUNO OTHR DR: Dr. Kellie Hudson MD Tissues: A - Stomach, NOS Procedures: H Pylori (initial) PHYSICIAN & INSTITUTION [place] [address] SPECIMEN INFORMATION: Tissue Source: Antral biopsy Clinical Info: Anemia Specimen Number: [id number] CPT code: 31629 METHODOLOGY: Deparaffinized sections of prefer/formalin-fixed tissue or PAP/DQ stained slides are incubated with monoclonal/polyclonal antibodies/oligonucleotide probes. Localization is made via biotin free immunoperoxidase method. Appropriate controls are performed and reacted as expected. Results on target cell population are indicated in the following table: RESULTS: ANTIBODY / CLONE RESULT Block A H Pylori (polyclonal) negative These tests were developed and their performance characteristics determined by [facility]. They may not have been cleared or approved by the U.S. Food and Drug Administration. The FDA has determined that such clearance or approval is not necessary. The above immunohistochemical/dualISH markers are ordered and reviewed by the Pathologist. INTERPRETATION: A. Antrum, biopsy: Negative for Helicobacter pylori organisms. BLANCA/ 12/19/23
[2023-12-16 07:57] VITALS: BP 122/81; BP 127/82; PULSE 88; RESP 18; TEMP 36.2; O2SAT 100
--- NOTE | 2023-12-16 07:58 | OP.CCLET_ITS ---
12/16/2023 Kellie Hudson [address] [place] [address] Re : Upper GI endoscopy procedure for Yessenia Dick Dear Dr. Hudson This procedure was performed on Saturday, December 16, 2023. My impressions and recommendations are as follows: Impressions : - Normal esophagus. - Large hiatal hernia. - Chronic gastritis. Biopsied. - Normal examined duodenum. Recommendations : - Discharge patient to home. - Resume previous diet. - Continue present medications. - Await pathology results. - Resume Eliquis (apixaban) at prior dose tomorrow. My findings are described in the full procedure note, which is enclosed. If I can be of further assistance, please feel free to contact me at Doctor phone number(s): , Work: . Sincerely, Dillan Demarco MD 12/16/2023 7:56:50 AM This report has been signed electronically.
--- NOTE | 2023-12-16 07:58 | OP.EGD_ITS ---
Patient Name: Yessenia Dick Procedure Date: 12/16/2023 7:11 AM Date of : 1965 Age: 58 Procedure: Upper GI endoscopy Indications: Suspected upper gastrointestinal bleeding in patient with chronic blood loss Providers: Dillan Demarco MD Medicines: Propofol per Anesthesia Patient Profile: This is a 58 year old female. Refer to note in patient chart for documentation of history and physical. Complications: No immediate complications. Estimated blood loss: Minimal. Procedure: Pre-Anesthesia Assessment: - Prior to the procedure, a History and Physical was performed, and patient medications and allergies were reviewed. The patient's tolerance of previous anesthesia was also reviewed. The risks and benefits of the procedure and the sedation options and risks were discussed with the patient. All questions were answered, and informed consent was obtained. Prior Anticoagulants: The patient has taken Eliquis (apixaban), last dose was 2 days prior to procedure. After reviewing the risks and benefits, the patient was deemed in satisfactory condition to undergo the procedure. After obtaining informed consent, the endoscope was passed under direct vision. Throughout the procedure, the patient's blood pressure, pulse, and oxygen saturations were monitored continuously. The colonoscope was introduced through the mouth, and advanced to the fourth part of duodenum. The upper GI endoscopy was accomplished without difficulty. The patient tolerated the procedure well. Scope In: 7:27:41 AM Scope Out: 7:30:55 AM Total Procedure Duration Time 0 hours 3 minutes 14 seconds Findings: The esophagus was normal. A large hiatal hernia was present. Mild inflammation was found at the pylorus. Biopsies were taken with a cold forceps for Helicobacter pylori testing. The examined duodenum was normal. Impression: - Normal esophagus. - Large hiatal hernia. - Chronic gastritis. Biopsied. - Normal examined duodenum. Recommendation: - Discharge patient to home. - Resume previous diet. - Continue present medications. - Await pathology results. - Resume Eliquis (apixaban) at prior dose tomorrow. Procedure Code(s): --- Professional --- 22746, Esophagogastroduodenoscopy, flexible, transoral; with biopsy, single or multiple Diagnosis Code(s): --- Professional --- K44.9, Diaphragmatic hernia without obstruction or gangrene K29.50, Unspecified chronic gastritis without bleeding R58, Hemorrhage, not elsewhere classified CPT copyright 2021 [employer]. All rights reserved. The codes documented in this report are preliminary and upon barrel maker review may be revised to meet current compliance requirements. Dillan Demarco MD 12/16/2023 7:56:50 AM This report has been signed electronically. Number of Addenda: 0 Note Initiated On: 12/16/2023 7:11 AM
--- NOTE | 2023-12-16 07:59 | OP.CCLET_ITS ---
12/16/2023 Kellie Hudson [address] [place] [address] Re : Colonoscopy procedure for Yessenia Dick Dear Dr. Hudson This procedure was performed on Saturday, December 16, 2023. My impressions and recommendations are as follows: Impressions : - One small polyp in the sigmoid colon, removed with a hot snare. Resected and retrieved. - The examination was otherwise normal on direct and retroflexion views. Recommendations : - Discharge patient to home. - Resume previous diet. - Continue present medications. - Await pathology results. - Repeat colonoscopy in 5 years for surveillance based on pathology results. My findings are described in the full procedure note, which is enclosed. If I can be of further assistance, please feel free to contact me at Doctor phone number(s): , Work: . Sincerely, Dillan Demarco MD 12/16/2023 7:58:28 AM This report has been signed electronically.
--- NOTE | 2023-12-16 07:59 | OP.COLON_ITS ---
Patient Name: Yessenia Dick Procedure Date: 12/16/2023 7:31 AM Date of : 1965 Age: 58 Procedure: Colonoscopy Indications: Iron deficiency anemia Providers: Dillan Demarco MD Medicines: Propofol per Anesthesia Patient Profile: This is a 58 year old female. Refer to note in patient chart for documentation of history and physical. Last Colonoscopy: 10 years ago. Complications: No immediate complications. Estimated blood loss: Minimal. Procedure: Pre-Anesthesia Assessment: - Prior to the procedure, a History and Physical was performed, and patient medications and allergies were reviewed. The patient's tolerance of previous anesthesia was also reviewed. The risks and benefits of the procedure and the sedation options and risks were discussed with the patient. All questions were answered, and informed consent was obtained. Prior Anticoagulants: The patient has taken Eliquis (apixaban), last dose was 2 days prior to procedure. After reviewing the risks and benefits, the patient was deemed in satisfactory condition to undergo the procedure. After I obtained informed consent, the scope was passed under direct vision. Throughout the procedure, the patient's blood pressure, pulse, and oxygen saturations were monitored continuously. The colonoscope was introduced through the anus and advanced to the cecum, identified by appendiceal orifice and ileocecal valve. The colonoscopy was performed without difficulty. The patient tolerated the procedure well. The quality of the bowel preparation was good. The ileocecal valve, appendiceal orifice, and rectum were photographed. Scope In: 7:36:33 AM Scope Withdrawal Time 0 hours 10 minutes 58 seconds Scope Out: 7:51:11 AM Total Procedure Duration Time 0 hours 14 minutes 38 seconds Findings: A small polyp was found in the sigmoid colon. The polyp was removed with a hot snare. Resection and retrieval were complete. The exam was otherwise without abnormality on direct and retroflexion views. Impression: - One small polyp in the sigmoid colon, removed with a hot snare. Resected and retrieved. - The examination was otherwise normal on direct and retroflexion views. Recommendation: - Discharge patient to home. - Resume previous diet. - Continue present medications. - Await pathology results. - Repeat colonoscopy in 5 years for surveillance based on pathology results. Procedure Code(s): --- Professional --- 80558, Colonoscopy, flexible; with removal of tumor(s), polyp(s), or other lesion(s) by snare technique Diagnosis Code(s): --- Professional --- D12.5, Benign neoplasm of sigmoid colon D50.9, Iron deficiency anemia, unspecified CPT copyright 2021 [employer]. All rights reserved. The codes documented in this report are preliminary and upon storyboard artist review may be revised to meet current compliance requirements. Dillan Demarco MD 12/16/2023 7:58:28 AM This report has been signed electronically. Number of Addenda: 0 Note Initiated On: 12/16/2023 7:31 AM
[2023-12-16 08:00] VITALS: BP 115/75; BP 127/82; PULSE 93; RESP 18; O2SAT 100
[2023-12-16 08:05] VITALS: BP 108/71; BP 127/82; PULSE 72; RESP 18; O2SAT 97
[2023-12-16 08:11] VITALS: BP 108/77; BP 127/82; PULSE 80; RESP 18; TEMP 36.8; O2SAT 97
[2023-12-16 08:22] VITALS: BP 127/82
== END 2023-12-16 08:52 | disposition home or self-care (01) ==
LOC: EN 06:00 → AC 06:01
PROVIDERS: PCP Family Medicine; Referring Provider Family Medicine; Visit Provider Surgery
PROC: 0DJD8ZZ Inspection of Lower Intestinal Tract, Via Natural or Artificial Opening Endoscopic (ICD-10-PCS; CPT 45378; principal; 2023-12-16 07:25)
DX: D50.9 Iron deficiency anemia, unspecified (principal); K44.9 Diaphragmatic hernia without obstruction or gangrene; K29.50 Unspecified chronic gastritis without bleeding; Z86.711 Personal history of pulmonary embolism; Z79.01 Long term (current) use of anticoagulants; K63.5 Polyp of colon; E03.9 Hypothyroidism, unspecified; Z79.890 Hormone replacement therapy
CPT/HCPCS: 45385; 43239; 88305; 88342; J7120; J2405

== ENCOUNTER → 2024-04-06 | Outpatient (CLI) | payer OTHER, SELFPAY ==
[2024-04-06 17:52] LABS: Absolute Lymphocyte Count 2.26 X10^3/uL (0.83-4.51); Absolute Neutrophil Count 7.3 X10^3/uL (2.0-7.7); Basophil# 0.06 X10^3/uL; Basophil% 0.5 % (0-1); Eosinophil# 0.03 X10^3/uL; Eosinophils% 0.3 % (0-5); Hematocrit 39.8 % (37-47); Hemoglobin 12.6 g/dL (12.0-15.0); Lymphocyte # 2.26 X10^3/ul (0.83-4.51); Lymphocyte % 20.4 % (19-41); Mean Corp Hgb Conc 31.7 g/dL (32-36); Mean Corpuscular Hgb 29.2 pg (27.0-32.0); Mean Corpuscular Volume 92.1 fL (81-99); Mean Platelet Vol. 11.1 fl (6.2-12.0); Monocyte# 1.44 X10^3/uL; NRBC Flagged by Analyzer 0 % (0-5); Neutrophil # 7.25 X10^3/uL (2.7-7.7); Neutrophil % 65.3 % (47-70); Platelet Count 249 K/mm3 (150-450); RBC Distribution Width CV 12.9 % (11.6-14.6); RBC Distribution Width SD 43.6 fl (35.1-43.9); RET-HE 32.6 pg (30-35); Red Blood Count 4.32 M/mm3 (4.2-5.4); Reticulocyte Count 2.06 % (0.5-1.5); White Blood Count 11.1 K/mm3 (4.4-11.0)
[2024-04-06 18:05] LABS: Iron 20 ug/dL (50-170); Thyroid Stim Hormone (TSH) 0.98 uIU/mL (0.358-3.74)
== END | disposition home or self-care (01) ==
LOC: MFPLAB 16:01
PROVIDERS: PCP Family Medicine; Visit Provider Family Medicine
DX: D64.9 Anemia, unspecified (principal); E03.9 Hypothyroidism, unspecified
CPT/HCPCS: 36415; 83540; 84443; 85025; 85045

== ENCOUNTER → 2024-05-09 | Outpatient (CLI) | payer OTHER, SELFPAY ==
[2024-05-09 17:41] LABS: Absolute Lymphocyte Count 2.15 X10^3/uL (0.83-4.51); Basophil# 0.05 X10^3/uL; Basophil% 0.6 % (0-1); Eosinophil# 0.15 X10^3/uL; Eosinophils% 1.7 % (0-5); Hematocrit 38.9 % (37-47); Hemoglobin 12.6 g/dL (12.0-15.0); Lymphocyte # 2.15 X10^3/ul (0.83-4.51); Lymphocyte % 23.7 % (19-41); Mean Corp Hgb Conc 32.4 g/dL (32-36); Mean Corpuscular Hgb 29.4 pg (27.0-32.0); Mean Corpuscular Volume 90.9 fL (81-99); Mean Platelet Vol. 10.3 fl (6.2-12.0); Monocyte# 0.67 X10^3/uL; Monocyte% 7.4 % (0-10); NRBC Flagged by Analyzer 0 % (0-5); Platelet Count 273 K/mm3 (150-450); RBC Distribution Width CV 13.3 % (11.6-14.6); RBC Distribution Width SD 44.3 fl (35.1-43.9); RET-HE 33.1 pg (30-35); Red Blood Count 4.28 M/mm3 (4.2-5.4); White Blood Count 9.1 K/mm3 (4.4-11.0)
[2024-05-09 17:49] LABS: D-Dimer Quantitative (DVT/PE) 0.31 FEU/ug/m (0.27-0.49)
[2024-05-09 17:56] LABS: Partial Thromboplast Time 27.2 Seconds (24.1-36.2)
[2024-05-09 18:10] LABS: Iron 37 ug/dL (50-170)
[2024-05-13 15:07] LABS: Anti-Thrombin 3 AG, Immunol 87 % (72-124); Antithrombin 3 Function 129 % (75-135); Factor VIII Activity 153 % (56-140); Protein C Antigen 93 % (60-150); Protein C, Functional 120 % (73-180); Protein S, Free 119 % (61-136); Protein S, Funtional 93 % (63-140); Protein S, Total 79 % (60-150); VWD Studies Interp Report Note (.); von Willebrand Factor (vWF) Ag 154 % (50-200); von Willebrand Factor Activity 135 % (50-200)
== END | disposition home or self-care (01) ==
LOC: MFPLAB 16:34
PROVIDERS: PCP Family Medicine; Visit Provider Family Medicine
DX: D64.9 Anemia, unspecified (principal); I26.99 Other pulmonary embolism without acute cor pulmonale
CPT/HCPCS: 36415; 83540; 85025; 85045; 85240; 85245; 85246; 85300; 85301; 85302; 85303; 85305; 85306; 85379; 85730

== ENCOUNTER → 2024-10-15 | Outpatient (CLI) | payer OTHER, SELFPAY ==
[2024-10-15 18:20] LABS: International Normalized Ratio 1.6
[2024-10-15 19:57] LABS: T4 Total, Thyroxin 10.7 ug/dL (4.8-13.9)
== END | disposition home or self-care (01) ==
LOC: MFPLAB 16:24
PROVIDERS: PCP Family Medicine; Referring Provider Family Medicine; Visit Provider Family Medicine
DX: I26.99 Other pulmonary embolism without acute cor pulmonale (principal); E03.9 Hypothyroidism, unspecified
CPT/HCPCS: 36415; 84436; 84443; 85610

== ENCOUNTER → 2025-05-24 | Outpatient (CLI) | payer OTHER, SELFPAY ==
[2025-05-24 15:23] LABS: Hematocrit 39.5 % (37-47); Hemoglobin 12.5 g/dL (12.0-15.0); Immature Granulocytes Count 0.020 X10^3/uL (0.0-0.0); Mean Corp Hgb Conc 31.6 g/dL (32-36); Mean Corpuscular Volume 93.2 fL (81-99); Mean Platelet Vol. 10.8 fl (6.2-12.0); NRBC Flagged by Analyzer 0 % (0-5); Platelet Count 263 K/mm3 (150-450); RBC Distribution Width CV 13.3 % (11.6-14.6); RBC Distribution Width SD 45.2 fl (35.1-43.9); Red Blood Count 4.24 M/mm3 (4.2-5.4); White Blood Count 7.1 K/mm3 (4.4-11.0)
[2025-05-24 16:10] LABS: AST(SGOT) 20 U/L (<=31); Alanine Aminotransfer ALT/SGPT 12 U/L (<=34); Albumin, Serum 4.4 g/dL (3.4-4.8); Alkaline Phosphatase 81 U/L (35-104); Anion Gap 14 (5-15); BUN 16 mg/dL (4-19); BUN/Creat Ratio 21.1 RATIO (10-20); Calcium,Total 9.1 mg/dL (7.6-11.0); Carbon Dioxide 23.2 mmol/L (21.0-32.0); Chloride 104 mmol/L (98-108); Cholesterol 205 mg/dL (<=200); Ferritin 49 ng/mL (22-378); Globulin 2.9 g/dL (2.2-4.2); Glucose 85 mg/dL (70-99); Iron 53 ug/dL (50-170); Iron Binding Capacity,Total 375 ug/dL (250-450); Iron Binding Capacity,Unsat 322 ug/dL (228-428); Low Density Lipoprotein Calc. 117 mg/dL; Potassium 3.9 mmol/L (3.3-5.1); Triglycerides 139 mg/dL; Very Low Density Lipoprotein 28 mg/dL (5-40); Vitamin D,25 Hydroxy 25.3 ng/mL (30-100); cholesterol:hdl ratio screen 3.42
== END | disposition home or self-care (01) ==
PROVIDERS: PCP Family Medicine; Visit Provider Family Medicine
DX: I26.99 Other pulmonary embolism without acute cor pulmonale (principal); E55.9 Vitamin D deficiency, unspecified; E03.9 Hypothyroidism, unspecified; D50.9 Iron deficiency anemia, unspecified
CPT/HCPCS: 36415; 80053; 80061; 82306; 82728; 83540; 83550; 84439; 84443; 85025; 86376; 86800

== ENCOUNTER → 2025-06-13 | Outpatient (CLI) | payer OTHER, SELFPAY ==
--- NOTE | 2025-06-13 17:15 | BI_ITS ---
EXAM: SCRN MAMM (CAD)W/YULY BILAT DATE: 06/13/2025 CLINICAL HISTORY: F, Age 59 y/o , ANNUAL SCREENING TECHNIQUE: Procedure Code: BISMWCADBTOM Modality: MG Procedure: SCRN MAMM (CAD)W/YULY BILAT COMPARISON: Prior exam(s) dated 11/29/2018. FINDINGS: TISSUE DENSITY: There are scattered areas of fibroglandular density. Bilateral Breast Mammographic Findings: No significant masses, calcifications or other abnormalities are identified. BI/SCRN MAMM (CAD)W/YULY BILAT IMPRESSION: There is no mammographic evidence of malignancy. OVERALL FINAL ASSESSMENT BI-RADS 1: NEGATIVE. RECOMMENDATION: Routine annual follow-up in 1 Year Additional Recommendation none A letter with findings and recommendations will be mailed to the patient. Reading Location: [id number]
== END | disposition home or self-care (01) ==
LOC: OPBI 16:33
PROVIDERS: PCP Family Medicine; Referring Provider Internal Medicine Hematology & Oncology; Visit Provider Internal Medicine Hematology & Oncology
DX: Z12.31 Encounter for screening mammogram for malignant neoplasm of breast (principal)
CPT/HCPCS: 77063; 77067

== ENCOUNTER → 2025-07-25 | Outpatient (CLI) | payer OTHER, SELFPAY ==
--- NOTE | 2025-07-25 14:59 | VDLE_ITS ---
Reason For Study Reason For Study: History of PE RIGHT LEFT CFV is compressible, spontaneous, phasic, competent GSV is normal. and demonstrates normal augmentation. CFV is compressible, spontaneous, phasic, competent, Procedure and demonstrates normal augmentation. This is a venous duplex using B-mode, color flow and FV is compressible, spontaneous, phasic, competent spectral Doppler. and demonstrates normal augmentation. Exam performed in department. POP V is compressible, spontaneous, phasic, competent A preliminary report was called and/or faxed to and demonstrates normal augmentation. Pablo. T/P Trunk is compressible. PTV is compressible. LT PerV is compressible. Varicose veins at mid calf (area of concern) are compressible. VL/Venous Duplex US, Unilateral Interpretation Summary Deep veins of the left lower extremity are patent and compressible segmentally. There is no evidence of left lower extremity deep vein thrombosis. Valvular competence appears intact within the p roximal deep venous system on the left . The left great saphenous vein appears patent and compressible segmentally. Supe rficial varicosities in the left mid-calf are noted to be compressible. The right common femoral vein is patent and compr essible . Ordering Physician: Anurag Shah Referring Physician: Alexis Loo Performed By: Yanet Salinas RVT
--- OUTSIDE RECORDS SUMMARY | 2025-07-25 19:11 | XMS RPT_ITS | CCD ---
Author Organization [facility] Care Team Providers Care [place] Mold Maker Name Role Phone Alice Dillon LPN Unavailable Unavailab Prema Gao Unavailable Prema Hagan Unavailable Izabel Jacobs Unavailable Alice Dillon LPN Unavailable Unavailab Prema Gao Unavailable Dr. Kellie Hudson Primary Care Provider Dr. Kellie Hudson Referring Provider [phone] Dr. Dillan Demarco Attending Provider Dr. Dillan Demarco Other Provider Dr. Kellie Hudson MD Primary Care Physician Dr. Alexis Loo MD Attending Physician Jennifer Lozano LPN Attending Physician Unavaila Dr. Alexis Barry MD Primary Care Physician Dr. Alexis Loo MD Referring Provider Dr. Spike Dueñas MD Attending Physician Kellie Hudson Primary Care Unavailable Alexis Loo Attending Unavailable Kellie Hudson Primary Care Unavailable Kellie Hudson Attending Unavailable Kellie Hudson Referring Unavailable Spike Dueñas Attending Unavailable Spike Dueñas Referring Unavailable Alexis Loo Primary Care Unavailable Alexis Loo Consulting Unavailable Kellie Hudson Primary Care Unavailable Jennifer Lozano Attending Unavailable Spike Dueñas Attending Unavailable Alexis Loo Primary Care Unavailable Alexis Loo Referring Unavailable Allergies Allergy Classification Reported Allergen(s) Allergy Type Date of Onset Reaction(s) Facility (6 sources) cefaclor drug allergy 12-22-19 17 [facility] Work Phone: (2 sources) predniSONE drug allergy 04-06-20 17 [facility] Work Phone: (6 sources) SULPHA drug allergy 12-22-19 17 [facility] Work Phone: (6 sources) AMOXICILLAN drug allergy 12-22-19 17 [facility] Work Phone: (8 sources) Amoxicillin Drug Allergy 04-11-20 16 [facility] (9 sources) Penicillins; Translations: [Penicillins] Allergy to substance 04-11-20 16 [facility] (3 sources) Cefaclor Drug Allergy 12-16-19 24 Rash [facility] (3 sources) diphenhydrAMINE Drug Allergy 12-16-19 24 Vomiting [facility] (2 sources) Sulfacetamide Drug Allergy 06-04-20 25 [facility] (2 sources) Sulfonamides (Antibiotic) Allergy to substance 06-04-20 25 [facility] (1 source) Amoxicillin Drug Allergy 06-04-20 25 [facility] (1 source) Cefaclor Drug Allergy 06-04-20 25 [facility] (1 source) diphenhydrAMINE Drug Allergy 06-04-20 25 [facility] (1 source) Sulfacetamide Drug Allergy 06-04-20 25 [facility] (1 source) Sulfonamides (Antibiotic) Drug allergy (disorder) 06-04-20 25 [facility] Medications Current Medications Medication Drug Class(es) Dates Sig (Normalized) Sig (Original) acetaminophen 500 mg oral tablet (2 sources) Start: 05-30-2025 take 2 tablets by mouth every six hours as needed cholecalciferol 0.05 mg oral capsule (5 sources) Vitamin D Start: 06-04-2025 take 1 capsule by mouth once daily Start: 11-21-2023 End: 05-30-2025 take 1 capsule by mouth once daily Cholecalciferol (Vitamin D3) 50 mcg (2,000 unit) capsule Discontinued 50 ug PO DAILY November 21, 2023 12:00am May 30, 2025 8:01am iron carbonyl 45 mg oral tablet (2 sources) Start: 06-04-2025 take 1 tablet by mouth once levothyroxine sodium 0.075 mg oral tablet (3 sources) l-Thyroxine Start: 12-15-2023 take 1 tablet by mouth once daily loratadine 10 mg oral tablet (2 sources) Start: 05-30-2025 take 1 tablet by mouth once daily warfarin sodium 4 mg oral tablet (4 sources) Vitamin K Antagonist Start: 05-30-2025 take 1 tablet by mouth once daily Start: 05-30-2025 take 1 tablet by mouth once da indigo Completed/Discontinued Medications Medication Drug Class(es) Dates Sig (Normalized) Sig (Original) apixaban 5 mg oral tablet (6 sources) Factor Xa Inhibitor Start: 08-01-2023 End: 05-30-2025 take 1 tablet by mouth twice daily Apixaban (Eliquis Dvt-Pe Treat 30d Start) 5 mg (74 tabs) tablets,dose pack Discontinued 5 mg PO TWICE A DAY 60 30 0 August 01, 2023 1:00am May 30, 2025 8:00am estradiol 2 mg oral tablet (8 sources) Estrogen Start: 12-12-2014 End: 12-15-2023 Estradiol 2 MG tablet Discontinued 2 mg DAILY December 12, 2014 12:00am December 15, 2023 3:11pm ESTROGENS CONJUGATED TABS (2 sources) Estrogen Start: 04-06-2017 PREMARIN TABS as directed ESTROGENS CONJUGATED TABS [id number] Alice Dillon LPN ibuprofen 200 mg oral tablet (8 sources) Nonsteroidal Anti-inflammatory Drug Start: 12-12-2014 End: 11-21-2023 take 1 tablet by mouth every four hours as needed for pain Ibuprofen 200 MG tablet Discontinued 200 mg PO EVERY 4 HOURS NEEDED as needed for Pain December 12, 2014 12:00am November 21, 2023 3:02pm omeprazole 40 mg delayed release oral capsule (3 sources) Proton Pump Inhibitor Start: 12-16-2023 End: 05-30-2025 take 1 capsule by mouth once daily Omeprazole 40 mg capsule,delayed release(DR/EC) Discontinued 40 mg PO DAILY 30 December 16, 2023 12:00am May 30, 2025 8:00am Problems Active Problems Problem Classification Problem Date Documented Da te Episodic/Chronic Administrative/social admission (8 sources) Patient encounter status; Translations: [Encounter for pre-employment examination] 04-10-2019 Episodic Deficiency and other anemia (6 sources) Chronic anemia; Translations: [Anemia, unspecified] 08-01-2023 Episodic Deficiency and other anemia (3 sources) Iron deficiency anemia; Translations: [Iron deficiency anemia, unspecified] 11-21-2023 Episodic Deficiency and other anemia (1 source) Anemia, unspecified; Translations: [Anemia, unspecified] 11-21-2023 Episodic Nonspecific chest pain (6 sources) Chest pain; Translations: [Chest pain, unspecified] 08-01-2023 Episodic Other screening for suspected conditions (not mental disorders or infectious disease) (1 source) Encounter for screening mammogram for malignant neoplasm of breast; Translations: [Encounter for screening mammogram for malignant neoplasm of breast] Onset: 07-02-2025 Episodic Pulmonary heart disease (12 sources) Pulmonary embolism; Translations: [Other pulmonary embolism without acute cor pulmonale] Onset: 06-04-2025 08-01-2023 Episodic Comment on above: July 2023, unpro voked bilateral subsegmental Past or Other Problems Problem Classification Problem Date Documented Da te Episodic/Chronic Administrative/social admission (2 sources) Encounter for pre-employment examination; Translations: [Encounter for pre-employment examination] Onset: 04-06-2017 04-06-2017 Episodic Other connective tissue disease (8 sources) Bursitis of foot region; Translations: [Foot pain] Onset: 12-21-2016 01-04-2017 Episodic Other connective tissue disease (2 sources) Foot pain; Translations: [Pain in left foot] Onset: 12-21-2016 12-21-2016 Episodic Sprains and strains (6 sources) Unspecified sprain of left foot, initial encounter; Translations: [Unspecified sprain of left foot, initial encounter] Onset: 12-21-2016 12-21-2016 Episodic Results Test Name Value Interpretation Reference Range Facility SCRN MAMM (CAD)W/YULY munoz 06-13-2025 SCRN MAMM (CAD)W/YULY BILAT [facility] Imaging Services [address] [place] [address] SCRN MAMM (CAD)W/YULY BILAT MR#: [id number] Acct: [id number] Name: BOUCHRA HUERTA Rep #: [id number] : 1965 F 59 From: Ashley Butler MD PCP: Dr. Alexis Loo MD Status: REG CLI Study: SCRN MAMM (CAD)W/YULY BILAT Date of Exam: 05/30 Exam# [id number] Ordering Dr: Spike Dueñas MD EXAM: SCRN MAMM (CAD)W/YULY BILAT DATE: 06/13/2025 CLINICAL HISTORY: F, Age 59 y/o , ANNUAL SCREENING TECHNIQUE: Procedure Code: BISMWCADBTOM Modality: MG Procedure: SCRN MAMM (CAD)W/YULY BILAT COMPARISON: Prior exam(s) dated 11/29/2018. FINDINGS: TISSUE DENSITY: There are scattered areas of fibroglandular density. Bilateral Breast Mammographic Findings: No significant masses, calcifications or other abnormalities are identified. BI/SCRN MAMM (CAD)W/YULY BILAT IMPRESSION: There is no mammographic evidence of malignancy. OVERALL FINAL ASSESSMENT BI-RADS 1: NEGATIVE. RECOMMENDATION: Routine annual follow-up in 1 Year Additional Recommendation none A letter with findings and recommendations will be mailed to the patient. Reading Location: [facility] CC: Dr. Alexis Loo MD; Dr. Spike Dueñas MD Diabetes Specialist: Signed Normal [facility] Oncology Visit Reporton 05-08 Oncology Visit Report [facility] [address] [place] [address] OFFICE VISIT Date of Service: 06/04/25929 MR#: [id number] Acct: [id number] Name: BOUCHRA HUERTA PITER Rep #: [id number] : 1965 From: Spike Dueñas MD Age/Sex: 59/F Location[place] [facility] Status: Signed HPI Subjective Date of Service 06/04/25 Chief Complaint History of pulmonary embolism History of Present Illness 59-year-old female who presented with acute chest pain was diagnosed with bilateral subsegmental pulmonary embolism in July 2023. She cannot recall any precipitating factor prior to this illness. She reports that she often travels with her family to [place] driving around Thanksgiving time but does not recall if this was the case in 2022 or not. She was initially treated with Eliquis then switched to Coumadin because of pricing. She has tolerated systemic anticoagulation without bleeding complications. [facility] Medical History (Updated 06/04/25 @ 10:[address] 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 Smoking Status: Never smoker alcohol intake: never substance use type: does not use ROS ROS Narrative She is unaware of any abnormal bleeding while being on anticoagulation Intake Vital Signs 12/16/23 06:29 06/04/25 09:32 06/04/25 09:54 Height 5 ft 5 in 5 ft 5 in 5 ft 5 in Weight: 100.868 kg BMI 37.0 BP 144/83 H Blood Pressure Location Lt brachial Position Sitting Respiration 18 Pulse 72 Pulse Source Monitor Temp 97.3 F L Temperature Source Temporal Artery Pulse Oximetry (%) 98 Oxygen Delivery Method room air Intake Is patient in pain?: Yes (left foot pain ) Allergies amoxicillin Allergy (Verified 06/04/25 09:50) Unknown Penicillins Allergy (Verified 06/04/25 09:50) Unknown Sulfa (Sulfonamide Antibiotics) Allergy (Verified 06/04/25 09:50) unknown cefaclor (From Ceclor) Adverse Reaction (Verified 06/04/25 09:50) Rash diphenhydramine (From Benadryl) Adverse Reaction (Verified 06/04/25 09:50) Vomiting sulfacetamide Adverse Reaction (Verified 06/04/25 09:50) Vomiting Medications ???Medication ???Instructions ???Recorded ???Confirmed ???Type levothyroxine 75 mcg tablet 75 mcg PO DAILY 12/15/23 06/04/25 History acetaminophen 500 mg tablet 1,000 mg PO Q6H PRN 05/30/2506/04 History (Tylenol Extra Strength) loratadine 10 mg tablet (Claritin) 10 mg PO QDAY 05/30/25 06/04/25 History warfarin 4 mg tablet 4 mg PO QDAY 05/30/25 06/04/25 His tory warfarin 5 mg tablet 5 mg PO QDAY 05/30/25 06/04/25 His tory cholecalciferol (vitamin D3) 50 50 mcg PO QDAY 06/04/25 06/04/25 H istory mcg (2,000 unit) capsule iron, carbonyl 45 mg tablet 45 mg PO ONCE 06/04/25 06/04/25 Hi story Have you fallen in the past year?: No Central Venous Access Central Venous Access: No Exam Physical Exam Const alert, oriented x3 and no apparent distress Nutritional Appearance: obese Coding Level of Care Code Off vis,new,level 3 Exam Problem Focused Diagnoses History of pulmonary embolism Z86.711 Assessment and Plan Assessment and Plan (1) History of pulmonary embolism: Status: Chronic Comment: July 2023, unprovoked bilateral subsegmental Plan 59-year-old female with unprovoked bilateral subsegmental pulmonary embolism in July 2023. She presented with acute chest pain. Although the patient reports that she often travels with her family driving to [place] around she could not be sure whether this was the case in 2022 or not. She was initially treated with Eliquis switched to Coumadin due to cost. She has tolerated treatment without bleeding complications Recommendations: 1- The efficacy and safety of indefinite anticoagulation in patients with symptomatic subsegmental pulmonary embolism in absence of provoking risk factors is controversial. My recommendation is continued indefinite anticoagulation for secondary prophylaxis since a provoking factor has not been identified nor is eliminated. 2-cancer screening: She has not had a screening mammography since 2018 and I advised her that vigilant screening specially in her case with a grandmot (more content not included)... Normal [facility] Thyroglobulin Antibodyon TG AB < 1.0 Normal 0.0-0.9 [facility] Comment on above: Result Comment: Thyr oglobulin Antibody measured by Tamara May Methodology It should be noted that the presence of thyroglobulin antibodies may not be pathogenic nor diagnostic, especially at very low levels. The assay saturator operator has found that four percent of individuals without evidence of thyroid disease or autoimmunity will have positive TgAb levels up to 4 IU/mL. Performed By: #### L 506.0400, L506.1001, L100.0100, L503.6550, L500.4100, L3300.7027, L500.4050, L3300.6900, L503.6030, L501.9520 #### [facility] [address] [place], [address] Thyroid Peroxidase ABon 05-07 THYR PEROX AB 9 IU/mL Normal 0-34 [facility] Comment on above: Result Comment: Perf ormed at: [facility] [address] [id number] Roofing Apprentice: Gutierrez Keyes PhD, Phone: [phone] Performed By: #### L 506.0400, L506.1001, L100.0100, L503.6550, L500.4100, L3300.7027, L500.4050, L3300.6900, L503.6030, L501.9520 #### [facility] [address] [place], [address] Absolute lymphocyte countOrd ered By: Alexis Loo on 05-24-2025 Lymphocytes Auto (Unsp spec) [#/Vol] 2.06 10*3/uL 0.83-4.51 [facility] Absolute neutrophil countOrd ered By: Alexis Loo on 05-24-2025 Neutrophils (Bld) [#/Vol] 4.3 10*3/uL 2.0-7.7 [facility] Anion gap in Serum or Plasma Ordered By: Alexis Loo on 05-24-2025 Anion gap [Moles/Vol] 14 mmol/L - [facility] Automated lymphocyte count a s percentage of total leukocytesOrdered By: Alexis Loo on 05-24-2025 Lymphocytes/100 WBC Auto (Unsp spec) 28.9 % [facility] BUN/creatinine ratioOrdered By: Alexis Loo on 05-24-2025 Urea nitrogen/Creatinine [Mass ratio] 21.1 mg/mg High - [facility] Basophil percentageOrdered B y: Alexis Loo on 05-24-2025 Basophils/100 WBC (Bld) 1.0 % 0- [facility] Bilirubin, totalOrdered By: Alexis Loo on 05-24-2025 Bilirubin [Mass/Vol] 0.33 mg/dL 0.00-1.30 [facility] CBC W/Diff, Automatedon 05-06 Absolute Lymph 2.06 X10 3/uL Normal 0.83-4.51 [facility] Comment on above: Performed By: #### L 506.0400, L506.1001, L100.0100, L503.6550, L500.4100, L3300.7027, L500.4050, L3300.6900, L503.6030, L501.9520 #### [facility] [address] [place], [address] Absolute Neut 4.3 X10 3/uL Normal 2.0-7.7 [facility] Comment on above: Performed By: #### L 506.0400, L506.1001, L100.0100, L503.6550, L500.4100, L3300.7027, L500.4050, L3300.6900, L503.6030, L501.9520 #### [facility] [address] [place], [address] Basophils/100 WBC (Bld) 1.0 % Normal 0-1 [facility] Comment on above: Performed By: #### L 506.0400, L506.1001, L100.0100, L503.6550, L500.4100, L3300.7027, L500.4050, L3300.6900, L503.6030, L501.9520 #### [facility] [address] [place], [address] Eosinophils/100 WBC (Bld) 1.1 % Normal 0-5 [facility] Comment on above: Performed By: #### L 506.0400, L506.1001, L100.0100, L503.6550, L500.4100, L3300.7027, L500.4050, L3300.6900, L503.6030, L501.9520 #### [facility] [address] [place], [address] Erythrocyte distribution width (RBC) [Ratio] 13.3 % Normal 11.6-14.6 [facility] Comment on above: Performed By: #### L 506.0400, L506.1001, L100.0100, L503.6550, L500.4100, L3300.7027, L500.4050, L3300.6900, L503.6030, L501.9520 #### [facility] [address] [place], [address] Hematocrit (Bld) [Volume fraction] 39.5 % Normal 37-47 [facility] Comment on above: Performed By: #### L 506.0400, L506.1001, L100.0100, L503.6550, L500.4100, L3300.7027, L500.4050, L3300.6900, L503.6030, L501.9520 #### [facility] [address] [place], [address] Hemoglobin (Bld) [Mass/Vol] 12.5 g/dL Normal 12.0-15.0 [facility] Comment on above: Performed By: #### L 506.0400, L506.1001, L100.0100, L503.6550, L500.4100, L3300.7027, L500.4050, L3300.6900, L503.6030, L501.9520 #### [facility] [address] [place], [address] IG% 0.300 Normal 0.0-0.9 [facility] Comment on above: Result Comment: IG% - Immature Granulocytes (promyelocytes, myelocytes and metamyelocytes) > 1% indicates that a LEFT SHIFT is Present. Performed By: #### L 506.0400, L506.1001, L100.0100, L503.6550, L500.4100, L3300.7027, L500.4050, L3300.6900, L503.6030, L501.9520 #### [facility] [address] [facility] [place], [address] Lymphocytes/100 WBC (Bld) 28.9 % Normal 19-41 [facility] Comment on above: Performed By: #### L 506.0400, L506.1001, L100.0100, L503.6550, L500.4100, L3300.7027, L500.4050, L3300.6900, L503.6030, L501.9520 #### [facility] [address] [place], [address] MCH (RBC) [Entitic mass] 29.5 pg Normal 27.0-32.0 [facility] Comment on above: Performed By: #### L 506.0400, L506.1001, L100.0100, L503.6550, L500.4100, L3300.7027, L500.4050, L3300.6900, L503.6030, L501.9520 #### [facility] [address] [place], [address] MCHC (RBC) [Mass/Vol] 31.6 g/dL Low 32-36 [facility] Comment on above: Performed By: #### L 506.0400, L506.1001, L100.0100, L503.6550, L500.4100, L3300.7027, L500.4050, L3300.6900, L503.6030, L501.9520 #### [facility] [address] [place], [address] MCV (RBC) [Entitic vol] 93.2 fL Normal 81-99 [facility] Comment on above: Performed By: #### L 506.0400, L506.1001, L100.0100, L503.6550, L500.4100, L3300.7027, L500.4050, L3300.6900, L503.6030, L501.9520 #### [facility] [address] [place], [address] Monocytes/100 WBC (Bld) 8.1 % Normal 0-10 [facility] Comment on above: Performed By: #### L 506.0400, L506.1001, L100.0100, L503.6550, L500.4100, L3300.7027, L500.4050, L3300.6900, L503.6030, L501.9520 #### [facility] [address] [place], [address] Neutrophils/100 WBC (Bld) 60.6 % Normal 47-70 [facility] Comment on above: Performed By: #### L 506.0400, L506.1001, L100.0100, L503.6550, L500.4100, L3300.7027, L500.4050, L3300.6900, L503.6030, L501.9520 #### [facility] [address] [place], [address] Nucleated RBC (Bld) [#/Vol] 0 10*3/uL Normal 0-5 [facility] Comment on above: Performed By: #### L 506.0400, L506.1001, L100.0100, L503.6550, L500.4100, L3300.7027, L500.4050, L3300.6900, L503.6030, L501.9520 #### [facility] [address] [place], [address] Platelet mean volume (Bld) [Entitic vol] 10.8 fL Normal 6.2-12.0 [facility] Comment on above: Performed By: #### L 506.0400, L506.1001, L100.0100, L503.6550, L500.4100, L3300.7027, L500.4050, L3300.6900, L503.6030, L501.9520 #### [facility] [address] [place], [place], [id number] (347) Platelets (Bld) [#/Vol] 263 10*3/uL Normal 150-450 [facility] Comment on above: Performed By: #### L 506.0400, L506.1001, L100.0100, L503.6550, L500.4100, L3300.7027, L500.4050, L3300.6900, L503.6030, L501.9520 #### [facility] [address] [place], [place], [id number] (345) RBC (Bld) [#/Vol] 4.24 10*6/uL Normal 4.2-5.4 [facility] Comment on above: Performed By: #### L 506.0400, L506.1001, L100.0100, L503.6550, L500.4100, L3300.7027, L500.4050, L3300.6900, L503.6030, L501.9520 #### [facility] [address] [place], [address] (422) RDW SD 45.2 fl High 35.1-43.9 [facility] Comment on above: Performed By: #### L 506.0400, L506.1001, L100.0100, L503.6550, L500.4100, L3300.7027, L500.4050, L3300.6900, L503.6030, L501.9520 #### [facility] [address] [place], [place], [id number] WBC (Bld) [#/Vol] 7.1 10*3/uL Normal 4.4-11.0 [facility] Comment on above: Performed By: #### L 506.0400, L506.1001, L100.0100, L503.6550, L500.4100, L3300.7027, L500.4050, L3300.6900, L503.6030, L501.9520 #### [facility] [address] [place], [place], [id number] Calculated very low density lipoprotein (VLDL) cholesterol measurementOrdered By: Alexis Loo on 05-24-2025 Calculated very low density lipoprotein (VLDL) cholesterol measurement 28 mg/dL 5-40 [facility] Carbon dioxide, total [Moles /volume] in Central venous bloodOrdered By: Alexis Loo on 05-24-2025 CO2 [Moles/Vol] 23.2 mmol/L 21.0-32.0 [facility] Chloride assayOrdered By: Saniya Loo on 05-24-2025 Chloride [Moles/Vol] 104 mmol/L 98-108 [facility] Comprehensive Metabolic Prof ilon 05-24-2025 Albumin [Mass/Vol] 4.4 g/dL Normal 3.4-4.8 [facility] Comment on above: Performed By: #### L 506.0400, L506.1001, L100.0100, L503.6550, L500.4100, L3300.7027, L500.4050, L3300.6900, L503.6030, L501.9520 #### [facility] [address] [place], [address] Albumin/Globulin [Mass ratio] 1.5 {ratio} Normal 0.9-2.4 [facility] Comment on above: Performed By: #### L 506.0400, L506.1001, L100.0100, L503.6550, L500.4100, L3300.7027, L500.4050, L3300.6900, L503.6030, L501.9520 #### [facility] [address] [place], [address] ALK PHOS 81 U/L Normal 35-104 [facility] Comment on above: Performed By: #### L 506.0400, L506.1001, L100.0100, L503.6550, L500.4100, L3300.7027, L500.4050, L3300.6900, L503.6030, L501.9520 #### [facility] [address] [facility] [place], [address] ALT [Catalytic activity/Vol] 12 U/L Normal <=34 [facility] Comment on above: Performed By: #### L 506.0400, L506.1001, L100.0100, L503.6550, L500.4100, L3300.7027, L500.4050, L3300.6900, L503.6030, L501.9520 #### [facility] [address] [facility] [place], [address] AST [Catalytic activity/Vol] 20 U/L Normal <=31 [facility] Comment on above: Performed By: #### L 506.0400, L506.1001, L100.0100, L503.6550, L500.4100, L3300.7027, L500.4050, L3300.6900, L503.6030, L501.9520 #### [facility] [address] [facility] [place], [address] Bilirubin [Mass/Vol] 0.33 mg/dL Normal 0.00-1.30 [facility] Comment on above: Performed By: #### L 506.0400, L506.1001, L100.0100, L503.6550, L500.4100, L3300.7027, L500.4050, L3300.6900, L503.6030, L501.9520 #### [facility] [address] [place], [address] BUN/CRE 21.1 RATIO High 10-20 [facility] Comment on above: Performed By: #### L 506.0400, L506.1001, L100.0100, L503.6550, L500.4100, L3300.7027, L500.4050, L3300.6900, L503.6030, L501.9520 #### [facility] [address] [place], [address] Calcium [Mass/Vol] 9.1 mg/dL Normal 7.6-11.0 [facility] Comment on above: Performed By: #### L 506.0400, L506.1001, L100.0100, L503.6550, L500.4100, L3300.7027, L500.4050, L3300.6900, L503.6030, L501.9520 #### [facility] [address] [place], [address] Chloride [Moles/Vol] 104 mmol/L Normal 98-108 [facility] Comment on above: Performed By: #### L 506.0400, L506.1001, L100.0100, L503.6550, L500.4100, L3300.7027, L500.4050, L3300.6900, L503.6030, L501.9520 #### [facility] [address] [place], [address] CO2 [Moles/Vol] 23.2 mmol/L Normal 21.0-32.0 [facility] Comment on above: Performed By: #### L 506.0400, L506.1001, L100.0100, L503.6550, L500.4100, L3300.7027, L500.4050, L3300.6900, L503.6030, L501.9520 #### [facility] [address] [place], [place], [id number] Creatinine [Mass/Vol] 0.77 mg/dL Normal 0.70-1.20 [facility] Comment on above: Performed By: #### L 506.0400, L506.1001, L100.0100, L503.6550, L500.4100, L3300.7027, L500.4050, L3300.6900, L503.6030, L501.9520 #### [facility] [address] [place], [place], [id number] GAP 14 Normal 5-15 [facility] Comment on above: Performed By: #### L 506.0400, L506.1001, L100.0100, L503.6550, L500.4100, L3300.7027, L500.4050, L3300.6900, L503.6030, L501.9520 #### [facility] [address] [place], [place], [id number] GFR/1.73 sq M.predicted among non-blacks MDRD (S/P/Bld) [Vol rate/Area] 88 mL/min/{1.73_m2} Normal >60 [facility] Comment on above: Result Comment: mL/m in/1.73m2 CKD-EPI Creatinine Equation (2020) Performed By: #### L 506.0400, L506.1001, L100.0100, L503.6550, L500.4100, L3300.7027, L500.4050, L3300.6900, L503.6030, L501.9520 #### [facility] [address] [place], [address] Globulin (S) [Mass/Vol] 2.9 g/dL Normal 2.2-4.2 [facility] Comment on above: Performed By: #### L 506.0400, L506.1001, L100.0100, L503.6550, L500.4100, L3300.7027, L500.4050, L3300.6900, L503.6030, L501.9520 #### [facility] [address] [place], [address] Glucose [Mass/Vol] 85 mg/dL Normal 70-99 [facility] Comment on above: Performed By: #### L 506.0400, L506.1001, L100.0100, L503.6550, L500.4100, L3300.7027, L500.4050, L3300.6900, L503.6030, L501.9520 #### [facility] [address] [place], [address] Potassium [Moles/Vol] 3.9 mmol/L Normal 3.3-5.1 [facility] Comment on above: Performed By: #### L 506.0400, L506.1001, L100.0100, L503.6550, L500.4100, L3300.7027, L500.4050, L3300.6900, L503.6030, L501.9520 #### [facility] [address] [place], [address] Sodium [Moles/Vol] 141 mmol/L Normal 133-145 [facility] Comment on above: Performed By: #### L 506.0400, L506.1001, L100.0100, L503.6550, L500.4100, L3300.7027, L500.4050, L3300.6900, L503.6030, L501.9520 #### [facility] [address] [place], [address] T PROT 7.3 g/dL Normal 5.9-8.4 [facility] Comment on above: Performed By: #### L 506.0400, L506.1001, L100.0100, L503.6550, L500.4100, L3300.7027, L500.4050, L3300.6900, L503.6030, L501.9520 #### [facility] [address] [facility] [place], [address] Urea nitrogen [Mass/Vol] 16 mg/dL Normal 4-19 [facility] Comment on above: Performed By: #### L 506.0400, L506.1001, L100.0100, L503.6550, L500.4100, L3300.7027, L500.4050, L3300.6900, L503.6030, L501.9520 #### [facility] [address] [facility] [place], [address] Eosinophil percentageOrdered By: Alexis Loo on 05-24-2025 Eosinophils/100 WBC (Bld) 1.1 % 0-5 [facility] Erythrocyte distribution wid th ratioOrdered By: Alexis Loo on 05-24-2025 Erythrocyte distribution width (RBC) [Ratio] 13.3 % 11.6-14.6 [facility] Erythrocyte distribution wid th standard deviationOrdered By: Alexis Loo on 05-24-2025 Erythrocyte distribution width (RBC) [Ratio] 45.2 fl High 35.1-43.9 [facility] Ferritinon 05-24-2025 Ferritin [Mass/Vol] 49 ng/mL Normal 22-378 [facility] Comment on above: Performed By: #### L 506.0400, L506.1001, L100.0100, L503.6550, L500.4100, L3300.7027, L500.4050, L3300.6900, L503.6030, L501.9520 #### [facility] [address] [facility] [place], [address] Glomerular filtration rate ( GFR) estimation/1.73 sq m using serum, plasma, or whole bOrdered By: Alexis Loo on 05-24-2025 GFR/1.73 sq M.predicted among non-blacks MDRD (S/P/Bld) [Vol rate/Area] 88 mL/min/{1.73_m2} >60 [facility] Comment on above: mL/min/1.73m2 CKD-EP I Creatinine Equation (2020) Hematocrit Auto (Bld) [Volum e fraction]Ordered By: Alexis Loo on 05-24-2025 Hematocrit (Bld) [Volume fraction] 39.5 % 37-47 [facility] Hemoglobin measurementOrdere d By: Alexis Loo on 05-24-2025 Hemoglobin (Bld) [Mass/Vol] 12.5 g/dL 12.0-15.0 [facility] Immature granulocytes/100 WB C Auto (Bld)Ordered By: Alexis Loo on 05-24-2025 Immature granulocytes/100 WBC (Bld) 0.300 % 0.0-0.9 [facility] Comment on above: IG% - Immature Granu locytes (promyelocytes, myelocytes and metamyelocytes) > 1% indicates that a LEFT SHIFT is Present. Iron measurement (mass/mass) Ordered By: Alexis Loo on 05-24-2025 Iron (Unsp spec) [Mass/Mass] 53 ug/dL 50-170 [facility] Iron+Iron Binding Capacityon 05-24-2025 Iron [Mass/Vol] 53 ug/dL Normal 50-170 [facility] Comment on above: Performed By: #### L 506.0400, L506.1001, L100.0100, L503.6550, L500.4100, L3300.7027, L500.4050, L3300.6900, L503.6030, L501.9520 #### [facility] [address] [place], [address] IRON SATURATION 14.1 Normal 13-59 [facility] Comment on above: Performed By: #### L 506.0400, L506.1001, L100.0100, L503.6550, L500.4100, L3300.7027, L500.4050, L3300.6900, L503.6030, L501.9520 #### [facility] [address] [facility] [place], [address] TIBC 375 ug/dL Normal 250-450 [facility] Comment on above: Performed By: #### L 506.0400, L506.1001, L100.0100, L503.6550, L500.4100, L3300.7027, L500.4050, L3300.6900, L503.6030, L501.9520 #### [facility] [address] [facility] [place], [address] UIBC 322 ug/dL Normal 228-428 [facility] Comment on above: Performed By: #### L 506.0400, L506.1001, L100.0100, L503.6550, L500.4100, L3300.7027, L500.4050, L3300.6900, L503.6030, L501.9520 #### [facility] [address] [place], [address] LDL calc ser/plasOrdered By: Alexis Loo on 05-24-2025 Cholesterol in LDL [Mass/Vol] 117 mg/dL [facility] Comment on above: Qbzpacaypx=092-528 m g/dL & Higher Ebfq=874 mg/dL or greaterFriedwald Equation for LDL-C Laboratory - Chemistry and C hemistry - challengeOrdered By: Alexis Loo on 05-24-2025 AST [Catalytic activity/Vol] 20 U/L <32 [facility] Lipid Profileon 05-24-2025 CHOL:HDL 3.42 Normal [facility] Comment on above: Performed By: #### L 506.0400, L506.1001, L100.0100, L503.6550, L500.4100, L3300.7027, L500.4050, L3300.6900, L503.6030, L501.9520 #### [facility] [address] [place], [address] Cholesterol [Mass/Vol] 205 mg/dL High <=200 [facility] Comment on above: Result Comment: Chol esterol level, Desirable <200 mg/dL Borderline high cholesterol 200-239 mg/dL High cholesterol >=240 mg/dL Recommendations of the NCEP Adult Treatment Panel for the following risk-cutoff thresholds for the [place] population. Performed By: #### L 506.0400, L506.1001, L100.0100, L503.6550, L500.4100, L3300.7027, L500.4050, L3300.6900, L503.6030, L501.9520 #### [facility] [address] [place], [address] Cholesterol in HDL [Mass/Vol] 60 mg/dL Normal [facility] Comment on above: Result Comment: Nilda onal Cholesterol Education Program (NCEP) guidelines: <40 mg/dL: Low HDL-cholesterol (major risk factor for CHD) >= 60 mg/dL: High HDL-cholesterol (negative risk factor for CHD) HDL-cholesterol is affected by a number of factors, e.g. smoking, exercise, hormones, sex and age. Performed By: #### L 506.0400, L506.1001, L100.0100, L503.6550, L500.4100, L3300.7027, L500.4050, L3300.6900, L503.6030, L501.9520 #### [facility] [address] [place], [address] Cholesterol in LDL [Mass/Vol] 117 mg/dL Normal [facility] Comment on above: Result Comment: Bord glcueb=229-409 mg/dL Higher Hsvc=752 mg/dL or greater Friedwald Equation for LDL-C Performed By: #### L 506.0400, L506.1001, L100.0100, L503.6550, L500.4100, L3300.7027, L500.4050, L3300.6900, L503.6030, L501.9520 #### [facility] [address] [place], [address] Cholesterol in VLDL [Mass/Vol] 28 mg/dL Normal 5-40 [facility] Comment on above: Performed By: #### L 506.0400, L506.1001, L100.0100, L503.6550, L500.4100, L3300.7027, L500.4050, L3300.6900, L503.6030, L501.9520 #### [facility] [address] [place], [place], [id number] (308) Triglyceride [Mass/Vol] 139 mg/dL Normal [facility] Comment on above: Result Comment: The drugs N-Acetylcysteine and Metamizole may falsely depress this assay. Normal range: <150 mg/dL Borderline High: 150-199 mg/dL High: 200-499 mg/dL Very High: >500 mg/dL Performed By: #### L 506.0400, L506.1001, L100.0100, L503.6550, L500.4100, L3300.7027, L500.4050, L3300.6900, L503.6030, L501.9520 #### [facility] [address] [place], [place], [id number] MCV (mean corpuscular volume ) determinationOrdered By: Alexis Loo on 05-24-2025 MCV (RBC) [Entitic vol] 93.2 fL 81-99 [facility] Mean corpuscular hemoglobin (MCH) determinationOrdered By: Alexis Loo on 05-24-2025 MCH (RBC) [Entitic mass] 29.5 pg 27.0-32.0 [facility] Mean corpuscular hemoglobin concentration (MCHC) determinationOrdered By: Alexis Loo on 05-24-2025 MCHC (RBC) [Mass/Vol] 31.6 g/dL Low 32-36 [facility] Mean platelet volume determi nationOrdered By: Alexis Loo on 05-24-2025 Platelet mean volume (Bld) [Entitic vol] 10.8 fL 6.2-12.0 [facility] Monocyte percentageOrdered B y: Alexis Loo on 05-24-2025 Monocytes/100 WBC (Bld) 8.1 % 0-10 [facility] Neutrophil percentageOrdered By: Alexis Loo on 05-24-2025 Neutrophils/100 WBC (Bld) 60.6 % 47-70 [facility] No Panel InformationOrdered By: Alexis Loo on 05-24-2025 Unsaturated Iron Binding Capacity 322 ug/dL 228-428 [facility] Nucleated red blood cell per centageOrdered By: Alexis Loo on 05-24-2025 Nucleated RBC/100 WBC (Bld) [Ratio] 0 % 0-5 [facility] Platelet countOrdered By: Saniya Loo on 05-24-2025 Platelets (Bld) [#/Vol] 263 10*3/uL 150-450 [facility] Potassium measurement (mass/ volume)Ordered By: Alexis Loo on 05-24-2025 Potassium (Unsp spec) [Mass/Vol] 3.9 mmol/L 3.3-5.1 [facility] RBC Auto (Bld) [#/Vol]Ordere d By: Alexis Loo on 05-24-2025 RBC (Bld) [#/Vol] 4.24 10*6/uL 4.2-5.4 [facility] Screening total cholesterol/ high density lipoprotein (HDL) cholesterol ratioOrdered By: Alexis Loo on 05-24-2025 Cholesterol.total/Cho lesterol in HDL [Mass ratio] 3.42 {ratio} [facility] Serum creatinine measurement (mass/volume)Ordered By: Alexis Loo on 05-24-2025 Creatinine [Mass/Vol] 0.77 mg/dL 0.70-1.20 [facility] Serum globulin measurementOr dered By: Alexis Loo on 05-24-2025 Globulin (S) [Mass/Vol] 2.9 g/dL 2.2-4.2 [facility] Serum glucose measurement (m ass/volume)Ordered By: Alexis Loo on 05-24-2025 Glucose [Mass/Vol] 85 mg/dL 70-99 [facility] Serum or plasma alanine torrez otransferase (ALT) measurementOrdered By: Alexis Loo on 05-24-2025 ALT [Catalytic activity/Vol] 12 U/L <35 [facility] Serum or plasma albumin em urement (mass/volume)Ordered By: Alexis Loo on 05-24-2025 Albumin [Mass/Vol] 4.4 g/dL 3.4-4.8 [facility] Serum or plasma albumin/glob ulin mass ratioOrdered By: Alexis Loo on 05-24-2025 Albumin/Globulin [Mass ratio] 1.5 {ratio} 0.9-2.4 [facility] Serum or plasma alkaline eben sphatase measurementOrdered By: Alexis Loo on 05-24-2025 ALP [Catalytic activity/Vol] 81 U/L 35-104 [facility] Serum or plasma calcium em urement (mass/volume)Ordered By: Alexis Loo on 05-24-2025 Calcium [Mass/Vol] 9.1 mg/dL 7.6-11.0 [facility] Serum or plasma cholesterol in HDL measurement (mass/volume)Ordered By: Alexis Loo on 05-24-2025 Cholesterol in HDL [Mass/Vol] 60 mg/dL >40 [facility] Comment on above: National Cholesterol Education Program (NCEP) guidelines:<40 mg/dL: Low HDL-cholesterol (major risk factor for CHD)>= 60 mg/dL: High HDL-cholesterol (negative risk factor for CHD)HDL-cholesterol is affected by a number of factors, e.g. smoking, exercise, hormones, sex and age. Serum or plasma cholesterol measurement (mass/volume)Ordered By: Alexis Loo on 05-24-2025 Cholesterol [Mass/Vol] 205 mg/dL High <201 [facility] Comment on above: Cholesterol level, D esirable <200 mg/dLBorderline high cholesterol 200-239 mg/dLHigh cholesterol >=240 mg/dLRecommendations of the NCEP Adult Treatment Panel for the following risk-cutoff thresholds for the [place] population. Serum or plasma ferritin claudia surement (mass/volume)Ordered By: Alexis Loo on 05-24-2025 Ferritin [Mass/Vol] 49 ng/mL 22-378 [facility] Serum or plasma iron saturat ion measurement (mass fraction)Ordered By: Alexis Loo on 05-24-2025 Iron saturation [Mass fraction] 14.1 % 13-59 [facility] Serum or plasma thyroperoxid ase antibody assay (units/volume)Ordered By: Alexis Loo on 05-24-2025 TPO Ab Qn 9 [IU]/mL 0-34 [facility] Comment on above: Performed at: [address] [id number] Director: Gutierrez Keyes PhD, Phone: [phone] Serum or plasma urea nitroge n measurement (mass/volume)Ordered By: Alexis Loo on 05-24-2025 Urea nitrogen [Mass/Vol] 16 mg/dL 4-19 [facility] Sodium levelOrdered By: Alexis Loo on 05-24-2025 Sodium [Moles/Vol] 141 mmol/L 133-145 [facility] T4 Free Directon 05-24-2025 T4 FREE DIRECT 1.30 ng/dL Normal 0.76-1.46 [facility] Comment on above: Performed By: #### L 506.0400, L506.1001, L100.0100, L503.6550, L500.4100, L3300.7027, L500.4050, L3300.6900, L503.6030, L501.9520 #### [facility] [address] [place], [place], [id number] T4 freeOrdered By: Alexis castellano on 05-24-2025 Free T4 [Mass/Vol] 1.30 ng/dL 0.76-1.46 [facility] TSH DL <= 0.005 mIU/L QnOrde red By: Alexis Loo on 05-24-2025 TSH Qn 1.670 uIU/mL 0.300-4.20 0 [facility] Thyroid Stim Hormone (TSH)on 05-24-2025 TSH 1.670 uIU/mL Normal 0.300-4.20 0 [facility] Comment on above: Performed By: #### L 506.0400, L506.1001, L100.0100, L503.6550, L500.4100, L3300.7027, L500.4050, L3300.6900, L503.6030, L501.9520 #### [facility] [address] [place], [address] Total proteinOrdered By: Spike Loo on 05-24-2025 Protein [Mass/Vol] 7.3 g/dL 5.9-8.4 [facility] Triglycerides measurementOrd ered By: Alexis Loo on 05-24-2025 Triglyceride [Mass/Vol] 139 mg/dL <199 [facility] Comment on above: The drugs N-Acetylcy steine and Metamizole may falsely depress this assay. Normal range: <150 mg/dLBorderline High: 150-199 mg/dLHigh: 200-499 mg/dLVery High: >500 mg/dL Vitamin D,25 Hydroxyon 05-24 Vitamin D 25-OH 25.3 ng/mL Low 30-100 [facility] Comment on above: Result Comment: Ladonna min D Status Deficiency: <20 ng/mL (50nmol/L) Insufficiency: 20-30 ng/mL (50-75 nmol/L) Sufficiency: 30-100 ng/mL (75-250 nmol/L) Toxicity: >100 ng/mL (>250 nmol/L) Performed By: #### L 506.0400, L506.1001, L100.0100, L503.6550, L500.4100, L3300.7027, L500.4050, L3300.6900, L503.6030, L501.9520 #### [facility] [address] [place], [place], [id number] White blood cell (WBC) count Ordered By: Alexis Loo on 05-24-2025 WBC (Bld) [#/Vol] 7.1 10*3/uL 4.4-11.0 [facility] Prothrombin Time w/INRon INR Coag (PPP) [Relative time] 1.6 {INR} Normal [facility] Comment on above: Performed By: #### L 506.0400, L506.1001, L100.0100, L503.6550, L500.4100, L3300.7027, L500.4050, L3300.6900, L503.6030, L501.9520 #### [facility] [address] [place], [address] PT Coag (PPP) [Time] 19.0 s High 11.7-14.9 [facility] Comment on above: Performed By: #### L 506.0400, L506.1001, L100.0100, L503.6550, L500.4100, L3300.7027, L500.4050, L3300.6900, L503.6030, L501.9520 #### [facility] [address] [place], [place], [id number] T4 Total, Thyroxinon 025 T4 [Mass/Vol] 10.7 ug/dL Normal 4.8-13.9 [facility] Comment on above: Performed By: #### L 506.0400, L506.1001, L100.0100, L503.6550, L500.4100, L3300.7027, L500.4050, L3300.6900, L503.6030, L501.9520 #### [facility] [address] [place], [address] Thyroid Stim Hormone (TSH)on 10-15-2024 TSH 2.560 uIU/mL Normal 0.358-3.74 0 [facility] Comment on above: Performed By: #### L 506.0400, L506.1001, L100.0100, L503.6550, L500.4100, L3300.7027, L500.4050, L3300.6900, L503.6030, L501.9520 #### [facility] [address] [place], [address] Absolute lymphocyte countOrd ered By: Kellie Hudson on 10-25-2023 Lymphocytes Auto (Unsp spec) [#/Vol] 2.08 10*3/uL 0.83-4.51 [facility] Automated lymphocyte count a s percentage of total leukocytesOrdered By: Kellie Hudson on 10-25-2023 Lymphocytes/100 WBC Auto (Unsp spec) 26.6 % 19-41 [facility] Basophil percentageOrdered B y: Kellie Hudson on 10-25-2023 Basophils/100 WBC (Bld) 0.9 % 0-1 [facility] Eosinophils/100 WBC (Bld) 1.5 % 0-5 [facility] Hemoglobin (Bld) [Mass/Vol] 12.9 g/dL 12.0-15.0 [facility] Monocytes/100 WBC (Bld) 8.6 % 0-10 [facility] Neutrophils (Bld) [#/Vol] 4.9 10*3/uL 2.0-7.7 [facility] Neutrophils/100 WBC (Bld) 62.0 % 47-70 [facility] WBC (Bld) [#/Vol] 7.8 10*3/uL 4.4-11.0 [facility] Determination of erythrocyte mean corpuscular volume (MCV)Ordered By: Kellie Hudson on 10-25-2023 MCV (RBC) [Entitic vol] 86.1 fL 81-99 [facility] Erythrocyte distribution wid th ratioOrdered By: Kellie Hudson on 10-25-2023 Erythrocyte distribution width (RBC) [Ratio] 18.1 % 11.6-14.6 [facility] Erythrocyte distribution wid th standard deviationOrdered By: Kellie Hudson on 10-25-2023 Erythrocyte distribution width (RBC) [Entitic vol] 58.4 fL 35.1-43.9 [facility] Hematocrit Auto (Bld) [Volum e fraction]Ordered By: Kellie Hudson on 10-25-2023 Hematocrit (Bld) [Volume fraction] 41.6 % 37-47 [facility] Immature granulocytes/100 WB C Auto (Bld)Ordered By: Kellie Hudson on 10-25-2023 Immature granulocytes/100 WBC (Bld) 0.400 % 0.0-0.9 [facility] Comment on above: IG% - Immature Granu locytes (promyelocytes, myelocytes and metamyelocytes) > 1% indicates that a LEFT SHIFT is Present. Iron measurement (mass/mass) Ordered By: Kellie Hudson on 10-25-2023 Iron (Unsp spec) [Mass/Mass] 37 ug/dL 50-170 [facility] - Hematology and Cell countsOrdered By: Kellie Hudson on 10-25-2023 MCH (RBC) [Entitic mass] 26.7 pg 27.0-32.0 [facility] MCHC (RBC) [Mass/Vol] 31.0 g/dL 32-36 [facility] Nucleated RBC/100 WBC (Bld) [Ratio] 0 % 0-5 [facility] Platelet mean volume (Bld) [Entitic vol] 10.5 fL 6.2-12.0 [facility] Platelets (Bld) [#/Vol] 279 10*3/uL 150-450 [facility] No Panel InformationOrdered By: Kellie Hudson on 10-25-2023 Vitamin D 25-Hydroxy 24.1 ng/mL [facility] Comment on above: Vitamin D 25(OH) Sta tus Range Deficiency <20 ng/mL (50nmol/L) Insufficiency 20 - 30 ng/mL (50 - 75 nmol/L) Sufficiency 30 - 100 ng/mL (75 - 250 nmol/L) Toxicity >100 ng/mL (>250 nmol/L) RBC Auto (Bld) [#/Vol]Ordere d By: Kellie Hudson on 10-25-2023 RBC (Bld) [#/Vol] 4.83 10*6/uL 4.2-5.4 [facility] Serum or plasma thyroid stim ulating hormone (TSH) measurement (units/volume)Ordered By: Kellie Hudson on 10-25-2023 TSH Qn 3.87 uIU/mL 0.358-3.74 [facility] Serum or plasma thyroxine (T 4) measurement (mass/volume)Ordered By: Kellie Hudson on 10-25-2023 T4 [Mass/Vol] 10.5 ug/dL 4.8-13.9 [facility] Absolute lymphocyte countOrd ered By: Ernesto Schmidt on 08-08-2023 Lymphocytes Auto (Unsp spec) [#/Vol] 1.73 10*3/uL 0.83-4.51 [facility] Basophil percentageOrdered B y: Ernesto Schmidt on 08-08-2023 Basophils/100 WBC (Bld) 0.7 % 0-1 [facility] Chloride [Moles/Vol] 109 mmol/L 98-107 [facility] Eosinophils/100 WBC (Bld) 1.8 % 0-5 [facility] Glucose [Mass/Vol] 94 mg/dL 74-106 [facility] Neutrophils (Bld) [#/Vol] 7.0 10*3/uL 2.0-7.7 [facility] Neutrophils/100 WBC (Bld) 71.2 % 47-70 [facility] Potassium [Moles/Vol] 3.9 mmol/L 3.5-5.1 [facility] Sodium [Moles/Vol] 141 mmol/L 136-145 [facility] WBC (Bld) [#/Vol] 9.9 10*3/uL 4.4-11.0 [facility] Blood erythrocytes count (nu mber/volume)Ordered By: Ernesto Schmidt on 08-08-2023 RBC (Bld) [#/Vol] 3.92 10*6/uL 4.2-5.4 [facility] Blood hemoglobin measurement (mass/volume)Ordered By: Ernesto Schmidt on 08-08-2023 Hemoglobin (Bld) [Mass/Vol] 8.3 g/dL 12.0-15.0 [facility] Blood lymphocytes/100 leukoc ytesOrdered By: Ernesto Schmidt on 08-08-2023 Lymphocytes/100 WBC (Bld) 17.5 % 19-41 [facility] Blood monocytes/100 leukocyt esOrdered By: Ernesto Schmidt on 08-08-2023 Monocytes/100 WBC (Bld) 8.1 % 0-10 [facility] Blood platelet mean volumeOr dered By: Ernesto Schmidt on 08-08-2023 Platelet mean volume (Bld) [Entitic vol] 10.0 fL 6.2-12.0 [facility] Determination of erythrocyte mean corpuscular volume (MCV)Ordered By: Ernesto Schmidt on 08-08-2023 MCV (RBC) [Entitic vol] 77.8 fL 81-99 [facility] Hematocrit Auto (Bld) [Volum e fraction]Ordered By: Ernesto Schmidt on 08-08-2023 Hematocrit (Bld) [Volume fraction] 30.5 % 37-47 [facility] - Chemistry and C hemistry - challengeOrdered By: Ernesto Schmidt on 08-08-2023 CO2 [Moles/Vol] 26.0 mmol/L 21.0-32.0 [facility] Urea nitrogen/Creatinine [Mass ratio] 20.6 mg/mg 10-20 [facility] - Hematology and Cell countsOrdered By: Ernesto Schmidt on 08-08-2023 Anisocytosis Ql (Bld) RARE [facility] Erythrocyte distribution width (RBC) [Entitic vol] 50.2 fL 35.1-43.9 [facility] Erythrocyte distribution width (RBC) [Ratio] 20.8 % 11.6-14.6 [facility] Immature granulocytes/100 WBC (Bld) 0.700 % 0.0-0.9 [facility] Comment on above: IG% - Immature Granu locytes (promyelocytes, myelocytes and metamyelocytes) > 1% indicates that a LEFT SHIFT is Present. MCH (RBC) [Entitic mass] 21.2 pg 27.0-32.0 [facility] Nucleated RBC/100 WBC (Bld) [Ratio] 0 % 0-5 [facility] MCHC Auto (RBC) [Mass/Vol]Or dered By: Ernesto Schmidt on 08-08-2023 MCHC (RBC) [Mass/Vol] 27.2 g/dL 32-36 [facility] No Panel InformationOrdered By: Ernesto Schmidt on 08-08-2023 Estimated Creatinine Clearance Calc 59.25 ml/min [facility] Estimated GFR (MDRD) Amer 80 mL/min >60 [facility] Comment on above: GFR Calc Estimated GFR (MDRD) Non-Af Amer 66 mL/min >60 [facility] Comment on above: Non- GFR Calc Troponin I High Sensitivity 6 pg/mL 3.0-54.0 [facility] Comment on above: Please Note: New Natalie t Units and Gender Specific Reference Ranges. For more information see Policy Stat Procedure Bally High Sensitivity Troponin (TNIH) and attachments. Platelets bldOrdered By: Peace Schmidt on 08-08-2023 Platelets (Bld) [#/Vol] 376 10*3/uL 150-450 [facility] RBC morphologyOrdered By: Missael Schmidt on 08-08-2023 RBC morphology finding Nom (Bld) N CHROM NORMAL NORM C&C [facility] Serum or plasma calcium em urement (mass/volume)Ordered By: Ernesto Schmidt on 08-08-2023 Calcium [Mass/Vol] 8.7 mg/dL 8.5-10.1 [facility] Serum or plasma creatinine m easurement (mass/volume)Ordered By: Ernesto Schmidt on 08-08-2023 Creatinine [Mass/Vol] 0.92 mg/dL 0.55-1.02 [facility] Comment on above: The validity of the calculated GFR & GFRAA in patients over 70 years has not been determined. Clinical correlation is essential. Serum or plasma urea nitroge n measurement (mass/volume)Ordered By: Ernesto Schmidt on 08-08-2023 Urea nitrogen [Mass/Vol] 19 mg/dL 7-18 [facility] Thin prep Papanicolaou smear with manual screeningOrdered By: Ernesto Schmidt on 08-08-2023 Thin prep Papanicolaou smear with manual screening RARE [facility] Thin prep Papanicolaou smear with manual screening 6 5-15 [facility] Absolute lymphocyte countOrd ered By: Olaf Castelan on 08-01-2023 Lymphocytes Auto (Unsp spec) [#/Vol] 2.19 10*3/uL 0.83-4.51 [facility] Basophil percentageOrdered B y: Olaf Castelan on 08-01-2023 Basophils/100 WBC (Bld) 0.7 % 0-1 [facility] Chloride [Moles/Vol] 108 mmol/L 98-107 [facility] Eosinophils/100 WBC (Bld) 2.0 % 0-5 [facility] Glucose [Mass/Vol] 97 mg/dL 74-106 [facility] Neutrophils (Bld) [#/Vol] 6.1 10*3/uL 2.0-7.7 [facility] Neutrophils/100 WBC (Bld) 64.2 % 47-70 [facility] Potassium [Moles/Vol] 3.7 mmol/L 3.5-5.1 [facility] Sodium [Moles/Vol] 140 mmol/L 136-145 [facility] WBC (Bld) [#/Vol] 9.4 10*3/uL 4.4-11.0 [facility] Blood erythrocytes count (nu mber/volume)Ordered By: Olaf Castelan on 08-01-2023 RBC (Bld) [#/Vol] 3.77 10*6/uL 4.2-5.4 [facility] Blood hemoglobin measurement (mass/volume)Ordered By: Olaf Castelan on 08-01-2023 Hemoglobin (Bld) [Mass/Vol] 7.8 g/dL 12.0-15.0 [facility] Blood lymphocytes/100 leukoc ytesOrdered By: Olaf Castelan on 08-01-2023 Lymphocytes/100 WBC (Bld) 23.2 % 19-41 [facility] Blood monocytes/100 leukocyt esOrdered By: Olaf Castelan on 08-01-2023 Monocytes/100 WBC (Bld) 9.3 % 0-10 [facility] Blood platelet mean volumeOr dered By: Olaf Castelan on 08-01-2023 Platelet mean volume (Bld) [Entitic vol] 9.5 fL 6.2-12.0 [facility] Determination of erythrocyte mean corpuscular volume (MCV)Ordered By: Olaf Castelan on 08-01-2023 MCV (RBC) [Entitic vol] 75.6 fL 81-99 [facility] Hematocrit Auto (Bld) [Volum e fraction]Ordered By: Olaf Castelan on 08-01-2023 Hematocrit (Bld) [Volume fraction] 28.5 % 37-47 [facility] Laboratory - Chemistry and C hemistry - challengeOrdered By: Olaf Castelan on 08-01-2023 CO2 [Moles/Vol] 27.0 mmol/L 21.0-32.0 [facility] Urea nitrogen/Creatinine [Mass ratio] 18.6 mg/mg 10-20 [facility] Laboratory - Hematology and Cell countsOrdered By: Olaf Castelan on 08-01-2023 Erythrocyte distribution width (RBC) [Entitic vol] 45.6 fL 35.1-43.9 [facility] Erythrocyte distribution width (RBC) [Ratio] 16.8 % 11.6-14.6 [facility] Immature granulocytes/100 WBC (Bld) 0.600 % 0.0-0.9 [facility] Comment on above: IG% - Immature Granu locytes (promyelocytes, myelocytes and metamyelocytes) > 1% indicates that a LEFT SHIFT is Present. MCH (RBC) [Entitic mass] 20.7 pg 27.0-32.0 [facility] Nucleated RBC/100 WBC (Bld) [Ratio] 0 % 0-5 [facility] MCHC Auto (RBC) [Mass/Vol]Or dered By: Olaf Castelan on 08-01-2023 MCHC (RBC) [Mass/Vol] 27.4 g/dL 32-36 [facility] No Panel InformationOrdered By: Olaf Castelan on 08-01-2023 Troponin I High Sensitivity 7 pg/mL 3.0-54.0 [facility] Comment on above: Please Note: New Natalie t Units and Gender Specific Reference Ranges. For more information see Policy Stat Procedure Bally High Sensitivity Troponin (TNIH) and attachments. D-Dimer Quantitative (PE/DVT) 0.66 FEU/ug/m 0.27-0.49 [facility] Comment on above: D-Dimer ELEVATED (>0 .49): Additional studies and clinicalassessments are indicated to conclude diagnosis of:Deep Vein Thrombosis (DVT) or Pulmonary Embolism (PE)CRITICAL VALUE VERIFIED. CALLED TO [id number] Anita Ricnon.RESULTS READ BACK BY SAME . Estimated Creatinine Clearance Calc 53.44 ml/min [facility] Estimated GFR (MDRD) Amer 71 mL/min >60 [facility] Comment on above: GFR Calc Estimated GFR (MDRD) Non-Af Amer 59 mL/min >60 [facility] Comment on above: Non- GFR Calc Platelets bldOrdered By: Sandro Castelan on 08-01-2023 Platelets (Bld) [#/Vol] 358 10*3/uL 150-450 [facility] Serum or plasma calcium em urement (mass/volume)Ordered By: Olaf Castelan on 08-01-2023 Calcium [Mass/Vol] 8.4 mg/dL 8.5-10.1 [facility] Serum or plasma creatinine m easurement (mass/volume)Ordered By: Olaf Castelan on 08-01-2023 Creatinine [Mass/Vol] 1.02 mg/dL 0.55-1.02 [facility] Comment on above: The validity of the calculated GFR & GFRAA in patients over 70 years has not been determined. Clinical correlation is essential. Serum or plasma urea nitroge n measurement (mass/volume)Ordered By: Olaf Castelan on 08-01-2023 Urea nitrogen [Mass/Vol] 19 mg/dL 7-18 [facility] Thin prep Papanicolaou smear with manual screeningOrdered By: Olaf Castelan on 08-01-2023 Thin prep Papanicolaou smear with manual screening 5 5-15 [facility] Absolute lymphocyte counton 09-07-2022 Lymphocytes Auto (Unsp spec) [#/Vol] 2.31 10*3/uL 0.83-4.51 [facility] Work Phone: Basophil percentageon 2022 Basophils/100 WBC (Bld) 0.7 % 0-1 [facility] Work Phone: Bilirubin [Mass/Vol] 0.20 mg/dL 0.20-1.00 [facility] Work Phone: [phone] Comment on above: For patients on eltr ombopag therapy, use of Dimension Bally TBIL is not recommended. Chloride [Moles/Vol] 108 mmol/L 98-107 [facility] Work Phone: [phone] Eosinophils/100 WBC (Bld) 1.5 % 0-5 [facility] Work Phone: [phone] Glucose [Mass/Vol] 93 mg/dL 74-106 [facility] Work Phone: [phone] Neutrophils (Bld) [#/Vol] 6.9 10*3/uL 2.0-7.7 [facility] Work Phone: [phone] Neutrophils/100 WBC (Bld) 64.9 % 47-70 [facility] Work Phone: Potassium [Moles/Vol] 4.2 mmol/L 3.5-5.1 [facility] Work Phone: Protein [Mass/Vol] 7.6 g/dL 6.4-8.2 [facility] Work Phone: [phone] Sodium [Moles/Vol] 141 mmol/L 136-145 [facility] Work Phone: WBC (Bld) [#/Vol] 10.6 10*3/uL 4.4-11.0 [facility] Work Phone: Blood erythrocytes count (nu mber/volume)on 09-07-2022 RBC (Bld) [#/Vol] 4.08 10*6/uL 4.2-5.4 [facility]: Blood hemoglobin measurement (mass/volume)on 09-07-2022 Hemoglobin (Bld) [Mass/Vol] 9.7 g/dL 12.0-15.0 [facility] Work Phone: Blood lymphocytes/100 leukoc yteson 09-07-2022 Lymphocytes/100 WBC (Bld) 21.8 % 19-41 [facility] Work Phone: Blood monocytes/100 leukocyt eson 09-07-2022 Monocytes/100 WBC (Bld) 10.6 % 0-10 [facility] Work Phone: Blood platelet mean volumeon 09-07-2022 Platelet mean volume (Bld) [Entitic vol] 10.3 fL 6.2-12.0 [facility] Work Phone: Determination of erythrocyte mean corpuscular volume (MCV)on 09-07-2022 MCV (RBC) [Entitic vol] 80.9 fL 81-99 [facility] Work Phone: Hematocrit Auto (Bld) [Volum e fraction]on 09-07-2022 Hematocrit (Bld) [Volume fraction] 33.0 % 37-47 [facility] Work Phone: Laboratory - Chemistry and C hemistry - challengeon 09-07-2022 ALP [Catalytic activity/Vol] 122 U/L 45-117 [facility] Work Phone: ALT [Catalytic activity/Vol] 21 U/L 13-56 [facility] Work Phone: CO2 [Moles/Vol] 27.0 mmol/L 21.0-32.0 [facility] Work Phone: Globulin (S) [Mass/Vol] 3.9 g/dL 2.2-4.2 [facility] Work Phone: Urea nitrogen/Creatinine [Mass ratio] 30.1 mg/mg 10-20 [facility] Work Phone: Laboratory - Hematology and Cell countson 09-07-2022 Erythrocyte distribution width (RBC) [Entitic vol] 41.7 fL 35.1-43.9 [facility] Work Phone: Erythrocyte distribution width (RBC) [Ratio] 14.1 % 11.6-14.6 [facility] Work Phone: Immature granulocytes/100 WBC (Bld) 0.500 % 0.0-0.9 [facility] Work Phone: Comment on above: IG% - Immature Granu locytes (promyelocytes, myelocytes and metamyelocytes) > 1% indicates that a LEFT SHIFT is Present. MCH (RBC) [Entitic mass] 23.8 pg 27.0-32.0 [facility] Work Phone: Nucleated RBC/100 WBC (Bld) [Ratio] 0.3 % 0-5 [facility] Work Phone: MCHC Auto (RBC) [Mass/Vol]on 09-07-2022 MCHC (RBC) [Mass/Vol] 29.4 g/dL 32-36 [facility]: No Panel Informationon 09-07 Estimated GFR (MDRD) Amer 91 mL/min >60 [facility] Work Phone: Comment on above: GFR Calc Estimated GFR (MDRD) Non-Af Amer 75 mL/min >60 [facility] Work Phone: Comment on above: Non- GFR Calc Thyroid Stimulating Hormone (TSH) 3.41 uIU/mL 0.358-3.74 [facility] Work Phone: Platelets bldon 09-07-2022 Platelets (Bld) [#/Vol] 427 10*3/uL 150-450 [facility] Work Phone: Serum or plasma albumin em urement (mass/volume)on 09-07-2022 Albumin [Mass/Vol] 3.7 g/dL 3.2-5.0 [facility] Work Phone: Serum or plasma albumin/glob ulin mass ratioon 09-07-2022 Albumin/Globulin [Mass ratio] 0.9 {ratio} 0.9-2.4 [facility] Work Phone: Serum or plasma calcium em urement (mass/volume)on 09-07-2022 Calcium [Mass/Vol] 8.8 mg/dL 8.5-10.1 [facility] Work Phone: Serum or plasma creatinine m easurement (mass/volume)on 09-07-2022 Creatinine [Mass/Vol] 0.83 mg/dL 0.55-1.02 [facility] Work Phone: Comment on above: The validity of the calculated GFR & GFRAA in patients over 70 years has not been determined. Clinical correlation is essential. Serum or plasma urea nitroge n measurement (mass/volume)on 09-07-2022 Urea nitrogen [Mass/Vol] 25 mg/dL 7-18 [facility] Work Phone: Thin prep Papanicolaou smear with manual screeningon 09-07-2022 Thin prep Papanicolaou smear with manual screening 14 U/L 15-37 [facility] Work Phone: Thin prep Papanicolaou smear with manual screening 6 5-15 [facility] Work Phone: Laboratory - Chemistry and C hemistry - challengeon 03-02-2022 T4 [Mass/Vol] 10.4 ug/dL 4.8-13.9 [facility] Work Phone: No Panel Informationon 03-02 Thyroid Stimulating Hormone (TSH) 2.64 uIU/mL 0.358-3.74 [facility] Work Phone: [facility] Documentation of current medications (procedure) Done Invalid Interpretation Code [facility] Work Phone: Fall risk assessment No Invalid Interpretation Code [facility] Work Phone: Protein mass conc Done [facility] Work Phone: Tobacco smoking status NHIS Never smoker [facility] Work Phone: Tobacco use [facility] Never smoker Invalid Interpretation Code [facility] Work Phone: Office Visiton 01-04-2017 Tobacco smoking status NHIS Never smoker [facility] Work Phone: Tobacco use [facility] Never smoker Invalid Interpretation Code [facility] Work Phone: Office Visiton 12-21-2016 Documentation of current medications (procedure) Done Invalid Interpretation Code [facility] Work Phone: Documentation of current medications (procedure) T Invalid Interpretation Code [facility] Work Phone: Tobacco use [facility] Never smoker Invalid Interpretation Code [facility] Work Phone: Culture, urine Bacteria identified Cx Nom (U) Presumptive E. coli [facility] Work Phone: Vital Signs Date Time Vital Sign Value Performing Clinician Facility 06-04-2025 09:54-0400 Body height 165.[address] Kellie Hudson MD Work Phone: [facility] 06-04-2025 09:54-0400 Body mass index (BMI) [Ratio] 37 kg/m2 Dr. Kellie Hudson MD Work Phone: [facility] 06-04-2025 09:54-0400 Body temperature 97.3 [degF] Dr. Kellie Hudson MD Work Phone: [facility] 06-04-2025 09:54-0400 Body weight 100.[address] Kellie Hudson MD Work Phone: [facility] 06-04-2025 09:54-0400 Diastolic blood pressure 83 mm[Hg] Dr. Kellie Hudson MD Work Phone: [facility] 06-04-2025 09:54-0400 Heart rate 72 /min Dr. Kellie Hudson MD Work Phone: [phone] [address] 06-04-2025 09:54-0400 Respiratory rate 18 /min Dr. Kellie Hudson MD Work Phone: [facility] 06-04-2025 09:54-0400 SaO2% (BldA) [Mass fraction] 98 % Dr. Kellie Hudson MD Work Phone: [facility] 06-04-2025 09:54-0400 Systolic blood pressure 144 mm[Hg] Dr. Kellie Hudson MD Work Phone: [facility] 12-16-2023 08:11-0400 Body temperature 98.3 [degF] Dr. Kellie Hudson Work Phone: [facility] 12-16-2023 08:11-0400 Diastolic blood pressure 77 mm[Hg] Dr. Kellie Hudson Work Phone: [facility] 12-16-2023 08:11-0400 Heart rate 80 /min Dr. Kellie Hudson Work Phone: [facility] 12-16-2023 08:11-0400 Respiratory rate 18 /min Dr. Kellie Hudson Work Phone: [facility] 12-16-2023 08:11-0400 SaO2% (BldA) [Mass fraction] 97 % Dr. Kellie Hudson Work Phone: [facility] 12-16-2023 08:11-0400 Systolic blood pressure 108 mm[Hg] Dr. Kellie Hudson Work Phone: [facility] 12-16-2023 06:29-0400 Body height 165.[address] Kellie Hudson Work Phone: [facility] 12-16-2023 06:29-0400 Body mass index (BMI) [Ratio] 35.9 kg/m2 Dr. Kellie Hudson Work Phone: [facility] 12-16-2023 06:29-0400 Body weight 98.[address] Kellie Hudson Work Phone: [phone] [address] 11-21-2023 15:01-0400 Body mass index (BMI) [Ratio] 37 kg/m2 Dr. Kellie Hudson Work Phone: [facility] 11-21-2023 15:01-0400 Body temperature 97.5 [degF] Dr. Kellie Hudson Work Phone: [facility] 11-21-2023 15:01-0400 Body weight 100.[address] Kellie Hudson Work Phone: [facility] 11-21-2023 15:01-0400 Diastolic blood pressure 84 mm[Hg] Dr. Kellie Hudson Work Phone: [facility] 11-21-2023 15:01-0400 Heart rate 86 /min Dr. Kellie Hudson Work Phone: [facility] 11-21-2023 15:01-0400 Respiratory rate 18 /min Dr. Kellie Hudson Work Phone: [facility] 11-21-2023 15:01-0400 SaO2% (BldA) [Mass fraction] 97 % Dr. Kellie Hudson Work Phone: [facility] 11-21-2023 15:01-0400 Systolic blood pressure 132 mm[Hg] Dr. Kellie Hudson Work Phone: [facility] 08-08-2023 20:34-0500 Diastolic blood pressure 72 mm[Hg] [facility] 08-08-2023 20:34-0500 Systolic blood pressure 114 mm[Hg] [facility] 08-08-2023 19:57-0500 Heart rate 74 /min [facility] 08-08-2023 19:57-0500 Respiratory rate 16 /min [facility] 08-08-2023 19:57-0500 SaO2% (BldA) [Mass fraction] 93 % [facility] 08-08-2023 17:36-0500 Body height 165.1 cm [facility] 08-08-2023 17:36-0500 Body mass index (BMI) [Ratio] 37.3 kg/m2 [facility] 08-08-2023 17:36-0500 Body temperature 97.1 [degF] [facility] 08-08-2023 17:36-0500 Body weight 101.65 kg [facility] 08-01-2023 20:56-0500 Diastolic blood pressure 63 mm[Hg] [facility] 08-01-2023 20:56-0500 Heart rate 75 /min [facility] 08-01-2023 20:56-0500 Respiratory rate 14 /min [facility] 08-01-2023 20:56-0500 SaO2% (BldA) [Mass fraction] 97 % [facility] 08-01-2023 20:56-0500 Systolic blood pressure 131 mm[Hg] [facility] 08-01-2023 16:24-0500 Body height 165.1 cm [facility] 08-01-2023 16:24-0500 Body mass index (BMI) [Ratio] 37.8 kg/m2 [facility] 08-01-2023 16:24-0500 Body temperature 96.8 [degF] [facility] 08-01-2023 16:24-0500 Body weight 102.92 kg [facility] 04-06-2017 11:12-0400 BMI (Body Mass Index) 27.53 kg/m2 Alice Dillon LPN [facility] Work Phone: 04-06-2017 11:12-0400 Body Temperature 97.9 [degF] Alice Dillon LPN [facility] Work Phone: 04-06-2017 11:12-0400 BP Diastolic 80 mm[Hg] Alice Dillon LPN [facility] Work Phone: 04-06-2017 11:12-0400 BP Systolic 140 mm[Hg] Alice Dillon LPN [facility] Work Phone: 04-06-2017 11:12-0400 Height 166.37 cm Alice Dillon LPN [facility] Work Phone: 04-06-2017 11:12-0400 Pulse (Heart Rate) 80 /min Alice Dillon LPN [facility] Work Phone: 04-06-2017 11:12-0400 Respiratory Rate 14 /min Alice Dillon LPN [facility] Work Phone: 04-06-2017 11:12-0400 Weight 76.2 kg Alice Dillon LPN [facility] Work Phone: 12-21-2016 08:30-0400 Height 165.1 cm Izabel Maloney [facility] Work Phone: Encounters Encounter Date Encounter Type Care Provider Facility Start: 06-13-2025 End: 06-13-2025 ambulatory Spike Dueñas Facility:[facility] Start: 06-04-2025 End: 06-04-[address] Spike Dueñas MD -[facility] Work Phone: Start: 06-04-2025 End: 06-04-[address] Kellie Hudson MD Work Phone: -[facility] Start: 05-30-2025 Non-patient / Non-visit Jennifer Marcum si DELFINA -[facility] Work Phone: Start: 05-30-2025 ambulatory Kellie Hudson Facility: [facility] Start: 05-24-2025 End: 05-24-[address] Kellie Hudson MD Work Phone: -Laboratory [facility] Start: 05-24-2025 End: 05-24-[address] Alexis Loo MD -Laboratory [facility] Start: 05-24-2025 End: 05-24-2025 ambulatory Kellie Hudson Facility:[facility] Start: 10-15-2024 End: 10-15-2024 ambulatory Kellie Hudson Facility:[facility] Start: 12-16-2023 Non-patient / Non-visit Dr. Lida Hudson Work Phone: [facility] Start: 12-16-2023 End: 12-16-2023 Admission to same day surgery center Dr. Kellie Hudson Work Phone: [facility] Work Phone: Start: 12-16-2023 End: 12-16-[address] Kellie Hudson Work Phone: [facility] Work Phone: Start: 11-21-2023 End: 11-21-[address] Kellie Hudson Work Phone: [facility] Work Phone: Start: 10-25-2023 End: 10-25-2023 ambulatory [facility] Work Phone: Start: 10-25-2023 End: 10-25-2023 [facility] Start: 08-08-2023 End: 08-08-2023 Emergency department patient visit [facility] Work Phone: Start: 08-01-2023 End: 08-01-2023 Emergency department patient visit [facility] Work Phone: Start: 09-07-2022 End: 09-07-2022 ambulatory [facility] Work Phone: Start: 09-07-2022 End: 09-07-2022 [facility] Start: 03-02-2022 End: 03-02-2022 Patient encounter procedure [facility], [facility] Start: 02-16-2022 End: 02-16-2022 Patient encounter procedure [facility], Specimen Procedures Date Procedure Procedure Detail Performing Clinician Start: 05-24-[address]ro[address] antibo dy measurement [address] Kellie Hudson MD Work Phone: Comment on above: Thyroglobulin Antibo dy measured by VipVentaMethodologyIt should be noted that the presence of thyroglobulinantibodies may not be pathogenic nor diagnostic, especiallyat very low levels. The assay saturator operator has found thatfour percent of individuals without evidence of thyroiddisease or autoimmunity will have positive TgAb levels upto 4 IU/mL. Start: 05-24-2025 Total iron binding c apacity measurement Dr. Kellie Hudson MD Work Phone: Start: 05-24-2025 Vitamin D, 25-hydrox y measurement Dr. Kellie Hudson MD Work Phone: Comment on above: Vitamin D StatusDefi ciency: <20 ng/mL (50nmol/L)Insufficiency: 20-30 ng/mL (50-75 nmol/L)Sufficiency: 30-100 ng/mL (75-250 nmol/L)Toxicity: >100 ng/mL (>250 nmol/L) Start: 12-16-[address] Kellie burdick Work Phone: Start: 08-08-2023 Plain chest X-ray Start: 08-01-2023 CT angiography of ch est with contrast Start: 08-01-2023 Plain chest X-ray Start: 04-06-2017 End: 04-06-2017 Pre-employment [employer] Miguelito GABRIEL Work Phone: Start: 12-21-2016 End: 12-21-2016 Documentation of current medications Prema Hagan Urine culture Plan of Treatment Date Care Activity Detail Author Start: 06-13-2025 MG Breast - bilateral Screening [facility] Start: 12-16-2023 Patient discharge [facility] Start: 08-08-2023 [facility] Start: 08-08-2023 [facility] Start: 08-01-2023 [facility] Start: 08-01-2023 [facility] Start: 04-06-2017 End: 04-06-2017 Appointment Appointment [facility] Work Phone: Start: 01-05-2017 End: 01-05-2017 Occupational Therapy General Occupational Therapy [facility], [address] [place] [address], [id number] [facility] Work Phone: Start: 01-04-2017 End: 01-04-2017 Appointment Appointment [facility] Work Phone: Start: 12-21-2016 End: 12-21-2016 Mri lower extremity w/o dye MRI Non Joint Lower Extremity w/o [facility] Work Phone: Start: 12-21-2016 End: 12-21-2016 X-ray exam of foot X-Ray, Foot [facility] Work Phone: Colonoscopy [facility] Patient Education [facility] Work Phone: Patient referral [facility] Work Phone: [facility] Immunizations Immunization Date Immunization Notes Care Provider Ramana jerome 12-11-2020 Covid (Pfizer) [facility] 11-20-2020 Covid (Pfizer) [facility] Payers Date Payer Category Payer Unknown [id number] 05-24-2025 Unknown [id number] 10-15-2024 Self-pay [id number] 03-02-2022 Unknown [id number] Unknown [id number] Unknown [facility] [id number] [facility] [id number] Unknown [id number] 2.16.8 [id number] Unknown [id number] 2.16.8 [id number] Unknown [id number] 2.16.8 [id number] Unknown [id number] 2.16.8 [id number] Unknown [id number] 2.16.8 [id number] Social History Date Type Detail Facility Start: 04-10-2019 End: 12-15-2023 Tobacco smoking status NHIS Unknown if ever smoked [facility] Start: 1965 Sex Assigned At Female [facility] Start: 06-04-2025 Tobacco smoking stat us NHIS Never smoked tobacco (finding) [facility] Sex Female [facility] Goals Date Patient Goal Desired Activity /State Mental Status Date Assessment Result Facility 12-16-2023 Cognitive function Voice/Name [facility] Work Phone: 08-08-2023 Cognitive function Voice/Name [facility] Work Phone: 08-01-2023 Cognitive function Voice/Name [facility] Work Phone: Clinical Notes 08-01-2023 to 06-04-2025 Note Date & Type Note Facility 06-04-2025 Evaluation note Diagnosis Onset Date Resolution History of pulmonary embolism chronic June 04, 2025 9:17am [facility] Work Phone: 1(323) 812-266909-30-2025 [facility] [place] [address] OFFICE VISIT Date of Service: 06/04/25929 MR#: [id number] Acct: [id number] Name: BOUCHRA HUERTA Rep #: [id number] : 1965 From: Spike velez MD Age/Sex: 59/F [place] [facility] [place] Status: Signed HPI Subjective Date of Service 06/04/25 Chief Complaint History of pulmonary embolism History of Present Illness 59-year-old female who presented with acute chest pain was diagnosed with bilateral subsegmental pulmonary embolism in July 2023. She cannot recall any precipitating factor prior to this illness.She reports that she often travels with her family to [place] driving around Thanksgiving time butdoes not recall if this was the case in 2022 or not. She was initially treated with Eliquis then switched to Coumadin because of pricing. She has tolerated systemic anticoagulation without bleeding complications. [facility] Medical History (Updated 06/04/25 @ 10:[address] 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 Smoking Status: Never smoker alcohol intake: never substance use type: does not use ROS ROS Narrative She is unaware of any abnormal bleeding while being on anticoagulation Intake Vital Signs 12/16/23 06:29 06/04/25 09:32 06/04/25 09:54 Height 5 ft 5 in 5 ft 5 in 5 ft 5 in Weight: 100.868 kg BMI 37.0 BP 144/83 H Blood Pressure Location Lt brachial Position Sitting Respiration 18 Pulse 72 Pulse Source Monitor Temp 97.3 F L Temperature Source Temporal Artery Pulse Oximetry (%) 98 Oxygen Delivery Method room air Intake Is patient in pain?: Yes (left foot pain ) Allergies amoxicillin Allergy (Verified 06/04/25 09:50) Unknown Penicillins Allergy (Verified 06/04/25 09:50) Unknown Sulfa (Sulfonamide Antibiotics) Allergy (Verified 06/04/25 09:50) unknown cefaclor (From Ceclor) Adverse Reaction (Verified 06/04/25 09:50) Rash diphenhydramine (From Benadryl) Adverse Reaction (Verified 06/04/25 09:50) Vomiting sulfacetamide Adverse Reaction (Verified 06/04/25 09:50) Vomiting Medications ?Medication ?Instructions ?Recorded ?Confirmed ?Type levothyroxine 75 mcg tablet 75 mcg PO DAILY 12/15/23 0 06/04/25 History acetaminophen 500 mg tablet 1,000 mg PO Q6H PRN 06/04/25 History (Tylenol Extra Strength) loratadine 10 mg tablet (Claritin) 10 mg PO QDAY 05/3006/04/25 History warfarin 4 mg tablet 4 mg PO QDAY 05/30/25 History warfarin 5 mg tablet 5 mg PO QDAY 05/30/25 History cholecalciferol (vitamin D3) 50 50 mcg PO QDAY 5 06/04/25 History mcg (2,000 unit) capsule iron, carbonyl 45 mg tablet 45 mg PO ONCE 06/04/25 History Have you fallen in the past year?: No Central Venous Access Central Venous Access: No Exam Physical Exam Const alert, oriented x3 and no apparent distress Nutritional Appearance: obese Coding Level of Care Code Off vis,new,level 3 Exam Problem Focused Diagnoses History of pulmonary embolism Z86.711 Assessment and Plan Assessment and Plan (1) History of pulmonary embolism: Status: Chronic Comment: July 2023, unprovoked bilateral subsegmental Plan 59-year-old female with unprovoked bilateral subsegmental pulmonary embolism in July 2023. She presented with acute chest pain. Although the patient reports that she often travels with her family driving to [place] around [facility] she could not be sure whether this was the case in 2022 or not. She was initially treated with Eliquis switched to Coumadin due to cost. She has tolerated treatment without bleeding complications Recommendations: 1- The efficacy and safety of indefinite anticoagulation in patients with symptomatic subsegmental pulmonary embolism in absence of provoking risk factorsis controversial. My recommendation is continued indefinite anticoagulation forsecondary prophylaxis since a provoking factor has not been identified nor is eliminated. 2-cancer screening: She has not had a screening mammography since 2018 and I advised her that vigilant screening specially in her case with a grandmother with history of breast cancer is advised. Shehad a colonoscopy in 2023 that showed a polyp and therefore 3 to 5-year follow-up is advisable. Shecan discuss this further with her PCP. 3. No further follow-up is needed with hematology. 4-A comprehensive hypercoagulability panel is not warranted since it will not alter the management plan and would require at least 2 weeks interruption of systemic anticoagulation. Impression and recommendations discussed with patient. Spike Dueñas MD Instrument Lens Grinder, [facility] Divisions of Medical Oncology & Hematology Department of Internal Medicine [place] [address] This note was generated using a voice recognition system software. Although itwas reviewed by the author prior to finalization, it may still contain incorrectwords, spelling, and punctuation that were not noted when reviewing prior to saving. If a clinically significant typo or inaccurately typed phrase is noted, please notify the author. Clinical Quality Measures Falls Risk Screening/Assistive Devices Have you fallen in the past year?: No 06/04/25 1039 ko VÁZQUEZ> Date _ Spike Dueñas MD Cosigner Signature: Date (if applicable) CC: Dr. Alexis Loo MD ~ [facility]04-12-2024 History and physical note Author Dillan Demarco [facility] December 16, 2023 6:49am Note Date/Time December 16, 2023 6:4 9am [facility] Medical Records Department [address] [place] [address] History & Physical Exam 12/16/23 0648 MR#: [id number] Acct: [id number] Name: BOUCHRA HUERTA Rep #:[id number] : 1965 58 From: Dillan calderon MD PCP: Dr. Kellie Hudson MD Status:[facility] Location: [place] [address] History and Physical Date of Admission: 12/16/23 Intake Vital Signs 08/08/2317:36 11/20/2414:01 Height 5 ft 5 in 5 ft 5 in Weight: 222 lb 4 oz BMI 37.0 BP 132/84 H Blood Pressure Location Rt brachial Position Sitting Respiration 18 Pulse 86 Pulse Source Monitor Temp 97.5 F L Temp Source Temporal Pulse Oximetry (%) 97 Oxygen Delivery Method room air Intake Visit Reasons: Anemia Chief Complaint: anemia Supervisor Gas Meter Repair Required: No Is patient in pain?: No Allergies amoxicillin Allergy (Verified 11/21/23 15:02) UnknownPenicillins Allergy (Verified 11/21/23 15:02) Unknown Medications estradiol 2 mg tablet 2 mg DAILY 12/12/14 [History Confirmed 11/21/23] apixaban 5 mg (74 tabs) tablets in a dose pack (Eliquis DVT-PE Treat 30D Start) 5 mg PO BID 30 days #60 tabs 08/01/23 [Rx Confirmed 11/21/23] cholecalciferol (vitamin D3) 50 mcg (2,000 unit) capsule 50 mcg PO DAILY 11/21/23 [History Confirmed 11/21/23] PFSH Medical History (Updated 11/21/23 @ 15:00 by Sharyn Rodriguez LPN) Hypothyroid Surgical History (Updated 11/21/23 @ 15:00 by Sharyn Rodriguez LPN) H/O total hysterectomy Social History (Updated 11/21/23 @ 15:01 by Sharyn Rodriguez LPN) Smoking Status: Never smoker alcohol intake: current substance use type: does not use HPI HPI HPI: Patient is a 58-year-old female sent here for iron deficiency anemia. She reports she has never had a colonoscopy. She says she is not having any abdominal pain or gross blood in the stool. She recently had a PE and is on Eliquis. She does not have family history of colon cancer. ROS General General: Yes weight change (gain ) and fatigue; No appetite, colon cancer, breast cancer or weakness HEENT HEENT: No difficulty swallowing, eye injury, eye surgery, swollen glands or hoarseness Endo Endocrine: Yes thyroid disease; No diabetes mellitus, thyroid cancer, Hair loss, heat intolerance or cold intolerance Skin Skin: No rash or changing moles Musc Musculoskeletal: Yes back problems; No arthritis, rheumatoid arthritis, gout or joint pain Cardio Cardiovascular: No murmur, pacemaker, heart disease, atrial fibrillation, high blood pressure, heart attack, heart stent, palpitations, shortness of breat withexertion or chest pain Psych Psychiatric: Yes depression; No anxiety or hearing voices Resp Respiratory: No shortness of breath, No sleep apnea, Yes cough, No COPD, No asthma, No emphysema and No wheezing Gastro Gastrointestinal: No abdominal pain, No nausea or vomiting, No diarrhea, No constipation, No blood in stool, No acid reflux, No hemorrhoids, No ulcers, No gallbladder problem and No black,tarry stools Sanjay Hematologic: Yes blood thinners, No blood disorders, No bleeding, Yes anemia andYes blood clots Neuro Neurologic: No weakness Exam Const General: cooperative Orientation: alert and oriented x3 HENMT Head: normal to inspection Neck Neck: normal visual inspection and full ROM Chest Chest palpation & inspection: normal inspection of the chest Resp Effort & Inspection: normal respiratory effort Auscultation: clear to auscultation bilaterally Cardio Rate: regular rate Rhythm: regular rhythm GI Inspection: non-distended Palpation: soft and nontender Skin General: no rashes or lesions noted Neuro General: patient alert and patient oriented x3 Extrem General: full ROM Psych Appearance: grossly normal Mental Status: mental status grossly normal Assessment and Plan Assessment and Plan (1) Anemia: Qualifiers: Anemia type: iron deficiency Iron deficiency anemia type: unspecified iron deficiency Qualified Code(s): D50.9 - Iron deficiency anemia, unspecified Plan: The patient has iron deficiency anemia and requires colonoscopy. She was sent for lab work last month and her hemoglobin was starting to come back up but since she has never had a scope I would recommend evaluation. I also discussed doing EGD with it to evaluate for anything bleeding in the stomach. She will hold her blood thinners for 2 days prior to surgery. I explained endoscopy in detail to the patient. I explained the risks includingbut not limited to stroke or heart attack with anesthesia, perforation of the GItract, bleeding, infection. I explained that any of these could necessitate further emergency surgery. The patient understands and all questions were answered sufficiently. The patient wishes to proceed with procedure. Dillan Demarco MD Pager: [facility] [address] [place] [address], [address] [place] [address] Office: I have examined the patient and the H&P has been reviewed. There are no clinicalchanges since date of exam. 12/16/23 0649 <Electronically signed by Dillan Demarco MD> Cosigner Signature (if applicable): CC: Dr. Kellie Hudson MD; Dr. Dillan Demarco MD~ Signed [facility] Work Phone: 1(984) 306-667204-12-2024 Procedure [facility] 12-16-2023 Procedure [facility]04-12-2024 Procedure note [facility]04-12-2024 Procedure [facility] 08-08-2023 Discharge summary Author Ernesto Schmidt [facility] August 08, 2023 8:16pm Note Date/Time August 08, 2023 6 :39pm [facility] Medical Records Department [address] [place] [address] Emergency Department Summary 08/08/23 MR#: [id number] Acct: [id number] Name: BOUCHRA HUERTA PITER Rep #:[id number] : 1965 58 From: Ernesto Schmidt MD PCP: Dr. Kellie Hudson MD Status:REG ER Location: ED HPI History of Present Illness Chief Complaint: Chest Pain Narrative Narrative: 58-year-old female past medical history of anemia, states she was here in the emergency department last week and diagnosed with bilateral pulmonary emboli. She started Eliquis with a loading dose. She had been seen because she was having chest pains. She has not missed a dose of her Eliquis, and she was also told that she had a hemoglobin of 7.8 when she was discharged from the emergencydepartment. She followed up with her primary care provider who told her that the chest pain should go away after approximately 1 week, but today she felt like her chest pains were worse. She became lightheaded and dizzy, and states she had pain going down her left arm as well. She felt short of breath. She denies any black tarry stool or any bleeding diathesis. She presents for evaluation of her continued chest pain with recent diagnosis of bilateral pulmonary emboli and anemia. No exacerbating or alleviating factors. [facility] Medical History Hypothyroid Home Medications estradiol 2 mg tablet 2 mg DAILY 12/12/14 [History Last Taken Unknown] ibuprofen 200 mg tablet 200 mg PO Q4H PRN PRN Pain 12/12/14 [History Last Taken Unknown] apixaban 5 mg (74 tabs) tablets in a dose pack (Eliquis DVT-PE Treat 30D Start) 5 mg PO BID 30 days #60 tabs 08/01/23 [Rx Last Taken Unknown] Allergy/AdvReac Type Severity Reaction Status Date / Time amoxicillin Allergy Unknown Verified 08/08/23 17:36 Penicillins Allergy Unknown Verified 08/08/23 17:36 Social History Smoking Status: Never smoker ROS ROS ED ROS Narrative Constitutional: No fever, no chills. HEENT: No sore throat. No neck pain. No loss of vision. No rhinorrhea. Cardiovascular: Positive chest pain. No palpitations. No pedal edema. Respiratory: No cough, positive shortness of breath. Abdominal: No abdominal pain. No nausea. No vomiting. Genitourinary: No dysuria. No hematuria. Musculoskeletal: No myalgias. No arthralgias. Neurologic: No headaches. Positive dizziness and lightheadedness. Paresthesia of left arm. Skin: No rash. No change in color. Psychiatric: No depression. No anxiety. EXAM Physical Exam Narrative Exam Narrative: Afebrile. Vital signs noted. HEENT: Normocephalic. Atraumatic. PERRL, EOMI. Neck soft and supple. No pointtenderness or step off. Cardiovascular: Regular rate and rhythm. No murmurs, rubs, or gallops appreciated. Respiratory: No tachypnea. Lungs clear to auscultation bilaterally. Gastrointestinal: Abdomen soft, nontender, with normoactive bowel sounds. No rebound or guarding. Neurological: Awake. Alert. Nonfocal, nonlateralizing. Skin: No rash. Normal color. No pallor. Musculoskeletal: No pedal edema. Full range of motion extremities. Const Vital Signs: 08/08/23 17:36 08/08/23 18:40 08/08/23 18:42 Temperature 97.1 F L Temperature Source Temporal Pulse Rate 82 Respiratory Rate 15 Respiratory Effort Normal Non-Labored Blood Pressure 151/71 H Blood Pressure Mean 97 Pulse Ox 98 Oxygen Delivery Method Room Air Room Air 08/08/23 18:15 08/08/23 19:57 Temperature Temperature Source Pulse Rate 76 74 Respiratory Rate 15 16 Respiratory Effort Blood Pressure 126/68 H 119/78 Blood Pressure Mean 82 91 Pulse Ox 99 93 Oxygen Delivery Method Room Air MDM MDM MDM Narrative Medical decision making narrative: I reviewed the patient's prior records. Her prior laboratory work does show shehad a hemoglobin of 7.8. In the differential diagnosis is continued anemia causing her shortness of breath and lightheadedness. I will check a CBC to ensure that it is not worsening. Additionally, she can be having chest pains from her pulmonary emboli. There also may be in the differential slight anxietycomponent related to this. EKG was obtained and interpreted by myself independently as normal sinus rhythm at 84 bpm without ectopy or acute ST changes. No STEMI. I do not feel that she needs a repeat CTA of her chest as her pulse ox is 98% on room air and pulse is 82. Hence, I have low concern for saddle embolus because she has not missed a dose of her Eliquis and her pulmonary emboli are being treated. I will obtain a single troponin to help rule out heart strain or coronary artery disease/ischemia. Chest x-ray will be obtained to help rule out pneumothorax or pneumonia as a cause of her chest pains that are worsening, but these are lower on the differential because the history and physical does not support this. I reviewed her laboratory work and she has normal white count of 9.9, hemoglobinimproved to 8.3 but still anemic. Platelet count normal at 376. Electrolyte panel shows chloride slightly elevated at 109 which I think is nonspecific, BUN of 19 with a normal creatinine of 0.9. High-sensitivity troponin is 6. Chest x-ray in 1 view interpreted by myself independently shows no evidence of pneumothorax or pneumonia. I do not feel antibiotics are indicated. Patient states she still has a headache upon repeat examination, and she declined any oral analgesics here stating she will take Tylenol at home. She will continue her Eliquis. I do not feel that she requires admission at this time. I feel she be discharged to follow-up with her primary care provider and continue her anticoagulant. Return instructions to the emergency department were reviewed. Disposition is discharged home in stable condition. History & Record Review Discussion w/independent historian: Patient Additional record(s) reviewed:: Prior ED visit and Prior labs Lab Data Attestation: I reviewed the patient's lab results. Labs: Laboratory Results - last 24 hr 08/08/23 18:40 WBC 9.9 RBC 3.92 L Hgb 8.3 L Hct 30.5 L MCV 77.8 L MCH 21.2 L MCHC 27.2 L RDW Std Deviation 50.2 H RDW Coeff of Snow 20.8 H Plt Count 376 MPV 10.0 Immature Gran % (Auto) 0.700 Neut % (Auto) 71.2 H Lymph % (Auto) 17.5 L [place] % (Auto) 8.1 Eos % (Auto) 1.8 Baso % (Auto) 0.7 Absolute Neuts (auto) 7.0 Absolute Lymphs (auto) 1.73 Nucleated RBC % 0 RBC Morphology N CHROM Anisocytosis RARE Microcytosis RARE Sodium 141 Potassium 3.9 Chloride 109 H Carbon Dioxide 26.0 Anion Gap 6 BUN 19 H Creatinine 0.92 Estim Creat Clear Calc 59.25 Est GFR (MDRD) Af Amer 80 Est GFR (MDRD) Non-Af 66 BUN/Creatinine Ratio 20.6 H Glucose 94 Calcium 8.7 Troponin I High Sens 6 Radiography Diagnostic Testing: Clinical Impression(s) from Imaging Studies Chest X-Ray 08/08/23 18:45 IMPRESSION: Large hiatal hernia. No acute pulmonary disease. Electronically Signed: Jorgito Carpio MD at 19:10 EST , Discharge Plan Triage Chief Complaint: Chest Pain ED Provider: Ernesto Schmidt Dx/Rx/DC Orders Clinical Impression: Bilateral pulmonary embolism, Chest pain Instructions: ED Chest Pain, Uncertain Cause, ED Pain, Acute, Uncertain Cause Prescriptions: No Action ibuprofen 200 MG tablet 200 mg PO Q4H PRN PRN (Reason: Pain) estradiol 2 MG tablet 2 mg DAILY Patient Comments: Gloriaquis DVT-PE Treat 30D Start 5 mg (74 tabs) tablets,dose pack 5 mg PO BID 30 Days Qty: 60 0RF Primary Care Provider: Kellie Hudson Referrals: Kellie Hudson MD [Primary Care Provider] - 3-5 Days if not improving Disposition Disposition: Home, Self Care What to do if you have Problems For any increased pain, shortness of breath, bleeding, nausea or vomiting, chestpain, or any unexpected problems, contact your Primary Care Provider. Call [facility] ([phone]) or report to the closest Emergency Room. Call 911 if necessary. 08/08/232015 <Electronically signed by Ernesto Schmidt MD> Cosigner Signature (if applicable): CC: Dr. Kellie Hudson MD ~ Signed [facility] Work Phone: 1(797) 313-349611-27-2023 Discharge summary Author Olaf Castelan [facility] August 01, 2023 8:22pm Note Date/Time August 01, 2023 5:00pm [facility] Medical Records Department [address] [place] [address] Emergency Department Summary 08/01/23 MR#: [id number] Acct: [id number] Name: BOUCHRA HUERTA PITER Rep #:[id number] : 1965 58 From: Olaf Castelan MD PCP: Dr. Kellie Hudson MD Status:REG ER Location: ED HPI History of Present Illness Chief Complaint: Chest Pain Informant: patient Onset/Context/Timing Onset: Today and Hours Activity at onset: gradual Timing: Intermittent Quality: Positive for - (Pinching) Location: Left Chest Current Severity: Gone Maximum Severity: Mild Worsened By: Nothing Relieved By: Nothing Associated Symptoms: Negative for Nausea, Vomiting, Diaphoresis, Dyspnea, Cough,Fever, Lightheadedness, Acid Reflux or Palpitations Narrative Narrative: 58-year-old female history of hypothyroidism. Work today around 330 and got pinching discomfort to the left side of her chest. Says this would come and go. Nothing particular made it better or worse. Not associated with exertion. Shehad a prior history of this and it was associated with anxiety. Denies any history of DVT or PE. She has had recent travel 6 hours to [place] and 6 hoursback. Denies any calf pain or hemoptysis. No pleuritic chest discomfort. She has no cardiac history but had a brother in the past year of an PR that was younger than her. She has had a stress test years ago that was negative. Prior Similar Symptoms: Yes Recent Illness/Hospitalization: No CVD Risk Factors: Positive for Family History 1' </=55; Negative for Hypertension, Diabetes, Hypercholesterolemia or Smoking PE Risk Factors: Positive for Recent Travel/Surgery; Negative for Recent Immobilization, Prior DVT or PE, Cancer or OCP + Smoking + >/=35 TAD Risk Factors: Negative for Marfan's Syndrome [facility] Medical History (Updated 08/01/23 @ 20:[address] Olaf Castelan MD) Hypothyroid Home Medications estradiol 2 mg tablet 2 mg DAILY 12/12/14 [History Last Taken Unknown] ibuprofen 200 mg tablet 200 mg PO Q4H PRN PRN Pain 12/12/14 [History Last Taken Unknown] apixaban 5 mg (74 tabs) tablets in a dose pack (Eliquis DVT-PE Treat 30D Start) 5 mg PO BID 30 days #60 tabs 08/01/23 [Rx Last Taken Unknown] Allergy/AdvReac Type Severity Reaction Status Date / Time amoxicillin Allergy Unknown Verified 08/01/23 16:24 Penicillins Allergy Unknown Verified 08/01/23 16:24 Social History Smoking Status: Unknown if ever smoked ROS ROS ED ROS Narrative Atypical chest pain today. Not exertional. No other recent symptoms. No shortness of breath. Review of Systems ROS Unobtainable: Denies due to encephalopathy Constitutional Constitutional ED: Denies chills or fever(s) Eyes Eyes: Reports none ENT ENT ED: Denies ear pain Cardiovascular Cardiovascular: Reports as per HPI and chest pain; Denies palpitations or racingheartbeat Respiratory/Chest Respiratory/Chest: Denies cough, dyspnea or dyspnea on exertion Gastrointestinal Gastrointestinal: Denies abdominal pain, constipation, diarrhea, melena or nausea Genitourinary Genitourinary ED: Denies dysuria or hematuria Musculoskeletal Musculoskeletal: Denies arthralgias, back pain, myalgias or neck pain Integumentary Denies abscess Neurologic Neurologic: Denies headache(s) Psychiatric Psychiatric: Denies depression Endocrine Endocrinology: Denies cold intolerance Hematologic/Lymphatic Hematologic/Lymphatic: Denies easy bleeding Allergic/Immunologic Allergic/Immunologic ED: Denies mouth swelling, tongue swelling or urticaria EXAM Physical Exam Narrative Exam Narrative: Well-appearing 58-year-old female. Vital signs are stable afebrile. Pulse ox 98% on room air no signs hypoxia. H EENT exam unremarkable. Neck nontender no JVD. Lungs clear to auscultation bilaterally. Heart regular rhythm rate about 100 no murmur. Chest wall she does have reproducible left-sided parasternal chest wall tenderness with says it felt the same discomfort. No ecchymosis or bruising. No subcu air crepitus. Abdomen soft nontender. Moving all 4 extremities. Equal symmetrical radial pulses. Normal hepatology physician strength. Calves are nontender without edema or cords. Neurologically she is awake alert. Moving all 4 extremities. Const Vital Signs: 08/01/23 16:24 08/01/23 16:29 08/01/23 17:03 Temperature 96.8 F L Temperature Source Temporal Pulse Rate 102 H 87 Respiratory Rate 18 16 Respiratory Effort Blood Pressure 164/86 H 125/86 H Blood Pressure Mean 112 99 Pulse Ox 98 97 98 Oxygen Delivery Method Room Air Room Air Room Air 08/01/23 16:50 Temperature Temperature Source Pulse Rate Respiratory Rate Respiratory Effort Normal Blood Pressure Blood Pressure Mean Pulse Ox Oxygen Delivery Method Positive well nourished and well developed; Negative for cachectic, contracturesor unkempt General Appearance ED: well developed and NAD; Negative for unkempt, cachectic, contractures or pallor Nutritional Appearance: Negative for cachectic HEENT Reports moist mucous membranes normocephalic and atraumatic; Negative for trauma or tenderness Eyes PERRL and EOMs intact bilaterally General Eye ED: Negative for pale conjunctiva, scleral icterus or other Neck no lymphadenopathy, supple and no JVD General: Negative for tenderness Chest Wall inspection of chest normal; Negative for palpation of chest normal Chest Narrative: Mild chest wall tenderness left parasternal. Chest: Negative for tenderness Resp normal respiratory effort and clear to auscultation bilaterally Effort and Inspection: Negative for respiratory distress Auscultation: Negative for rales, rhonchi or wheezes Cardio regular rate, regular rhythm, S1 normal heart sound, S2 normal heart sound and no murmurs Rate: Negative for bradycardia or tachycardic Rhythm: Negative for abnormal rhythm Peripheral Pulses: pulses 2+ throughout GI normal to inspection, nondistended, normoactive bowel sounds, soft to palpation,non-tender and non-distended Back/Spine no CVA tenderness and no thoracic nor lumbar tenderness General Back: Negative for CVA tenderness Cervical Spine: Negative for cervical spine tenderness Extremity normal to inspection General Extremety ED: Negative for edema or pulses abnormal General Extremity: Negative for edema or pulses abnormal Neuro oriented x3, CN's II-XII intact bilaterally and no sensory deficits noted Sensorium / Orientation: awake, alert, oriented to person, oriented to place andoriented to time; Negative for confused, lethargic or stuporous Motor Exam: strength 5/5 throughout Psych mental status grossly normal Appearance: Negative for unkempt Attitude: No agitated Mood & Affect: Negative for depressed, anxious or tearful Skin no rashes or lesions noted and no wounds General Skin Exam: Negative for jaundice or pallor Rashes: No rashes noted Trauma: Negative for abrasion or laceration MDM MDM MDM Narrative Medical decision making narrative: 58-year-old female with atypical nonexertional chest pain. Has had no recent exertional symptoms. She undergo cardiac workup. She also had recent travel with no clinically this does not sound like a PE. D-dimer will be obtained also. She does have family history of cardiac disease and a younger brother whodied of an PR in the last year. Repeat exam patient is doing well at both 6 PM and 8:15 PM. The CTA of her chest shows bilateral lower lobe PEs. She will be started on Eliquis tonight. Discharged home. Outpatient follow-up with her primary care physician. I did speak to Dr. Ruy Sahni on-call for the patient's primary care physician to ensure close follow- up. Patient also instructed to ensure she is taking her iron because her hemoglobin is only 7.8 and she is at risk of needing a transfusion if it gets any worse. History & Record Review Discussion w/independent historian: Patient Additional record(s) reviewed:: Prior inpatient record, Prior outpatient record,Prior ED visit and Prior labs Lab Data Attestation: I reviewed the patient's lab results. Lab results narrative: CBC shows a white count of 9.4. H&H is 7.8 and 28.5. Platelets 358. D-dimer is elevated 0.66. Troponin is normal at 4. Electrolytes show a gap of 5 BUN and creatinine 19 and 1. Glucose 97. Chest x-ray is normal. Labs: Laboratory Results - last 24 hr 08/01/23 08/01/23 16:50 18:50 WBC 9.4 RBC 3.77 L Hgb 7.8 L Hct 28.5 L MCV 75.6 L MCH 20.7 L MCHC 27.4 L RDW Std Deviation 45.6 H RDW Coeff of Snow 16.8 H Plt Count 358 MPV 9.5 Immature Gran % (Auto) 0.600 Neut % (Auto) 64.2 Lymph % (Auto) 23.2 [place] % (Auto) 9.3 Eos % (Auto) 2.0 Baso % (Auto) 0.7 Absolute Neuts (auto) 6.1 Absolute Lymphs (auto) 2.19 Nucleated RBC % 0 D-Dimer Quant (PE/DVT) 0.66 H* Sodium 140 Potassium 3.7 Chloride 108 H Carbon Dioxide 27.0 Anion Gap 5 BUN 19 H Creatinine 1.02 Estim Creat Clear Calc 53.44 Est GFR (MDRD) Af Amer 71 Est GFR (MDRD) Non-Af 59 L BUN/Creatinine Ratio 18.6 Glucose 97 Calcium 8.4 L Troponin I High Sens 4 7 Radiography Chest X-Ray - ED: 1 View, Read by ED Physician, Normal, Heart, Lungs, Mediastinum, Bony Structures and No Acute Disease Diagnostic Testing: Clinical Impression(s) from Imaging Studies Chest X-Ray 08/01/23 16:29 IMPRESSION: No acute radiographic abnormalities. Hiatal hernia. Electronically Signed: Andreas Melendez MD at 18:45 EST , Chest CTA 08/01/23 18:17 IMPRESSION: Small volume nearly occlusive acute pulmonary emboli in the bilateral lower lobe subsegmental pulmonary arteries. No evidence of right heart strain. Electronically Signed: Andreas Melendez MD at 19:51 EST , Chest x-ray, portable, single view shows no acute abnormality. Normal cardiac silhouette. Normal lung green. Normal mediastinum. Rhythm Strip Rhythm Strip: Sinus Rhythm Rate: 97 Ectopy: None EKG Initial EKG: Attestation: I personally reviewed and interpreted this EKG as follows: Interpretation: Sinus Rhythm and No Acute Injury Pattern Comments: Normal sinus rhythm rate of 97 no acute signs of PR or ischemia. Unremarkable EKG. Discharge Plan Triage Chief Complaint: Chest Pain ED Provider: Olaf Castelan Dx/Rx/DC Orders Clinical Impression: Chronic anemia, Bilateral pulmonary embolism, Chest pain Instructions: Pulmonary Embolism, Anemia Prescriptions: New Eliquis DVT-PE Treat 30D Start 5 mg (74 tabs) tablets,dose pack 5 mg PO BID 30 Days Qty: 60 0RF No Action ibuprofen 200 MG tablet 200 mg PO Q4H PRN PRN (Reason: Pain) estradiol 2 MG tablet 2 mg DAILY Patient Comments: Primary Care Provider: Kellie Hudson Referrals: Kellie Hudson MD [Primary Care Provider] - As soon as possible Activity Restrictions/Additional Instructions: You have blood clots in your lower lungs. You will be started on the blood thinner Eliquis. If you would hit your head orhave any significant bleeding or large bruising you need to be reevaluated. Make sure to get back on your iron as prescribed because your hemoglobin today was only 7.8. If it gets any lower you might need a blood transfusion. Call and follow-up with your primary care physician Dr. Hudson is soon as possible. Most likely you will be on the blood thinning medication for around 6months. Disposition Disposition: Home, Self Care What to do if you have Problems For any increased pain, shortness of breath, bleeding, nausea or vomiting, chestpain, or any unexpected problems, contact your Primary Care Provider. Call [facility] ([phone]) or report to the closest Emergency Room. Call 911 if necessary. 08/01/232021 <Electronically signed by Olaf Castelan MD> Cosigner Signature (if applicable): CC: Dr. Kellie Hudson MD ~ Signed [facility] Work Phone: Evaluation noteNo assessment information available [facility] Work Phone: Evaluation note* Diagnosis Onset Date Resolution Status Anemia noneactive [facility] Work Phone: Evaluation note* Diagnosis Onset Date Resolution Status Admit Date History of pulmonary embolism chronic June 04, 2025 9:17am [facility] Work Phone: Hospital Discharge instructions Additional Instructions You have blood clots in your lower lungs. You will be started on the blood thinner Eliquis. If you would hit your head or have any significant bleeding or large bruising you need to be reevaluated. Make sure to get back on your iron as prescribed because your hemoglobin today was only 7.8. If it gets any lower you might need a blood transfusion. Call and follow-up with your primary care physician Dr. Hudson is soon as possible. Most likely you will be on the blood thinning medication for around 6 months.[facility] Work Phone: Progress note Author Spike Dueñas [facility] Services Note Date/Time June 04, 2025 10:39am [facility] [address] [place] [address] OFFICE VISIT Date of Service: 06/04/25929 MR#: [id number] Acct: [id number] Name: BOUCHRA HUERTA Rep #: [id number] : 1965 From: Spike velez MD Age/Sex: 59/F [place] [facility] [place] Status: Signed HPI Subjective Date of Service 09/30/25 Chief Complaint History of pulmonary embolism History of Present Illness 59-year-old female who presented with acute chest pain was diagnosed with bilateral subsegmental pulmonary embolism in July 2023. She cannot recall any precipitating factor prior to this illness. She reports that she often travels with her family to [place] driving around Thanksgiving time but does not recall if this was the case in 2022 or not. She was initially treated with Eliquis then switched to Coumadin because of pricing. She has tolerated systemic anticoagulation without bleeding complications. [facility] Medical History (Updated 06/04/25 @ 10:[address] 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 Smoking Status: Never smoker alcohol intake: never substance use type: does not use ROS ROS Narrative She is unaware of any abnormal bleeding while being on anticoagulation Intake Vital Signs 12/16/23 06:29 06/04/25 09:32 06/04/25 09:54 Height 5 ft 5 in 5 ft 5 in 5 ft 5 in Weight: 100.868 kg BMI 37.0 BP 144/83 H Blood Pressure Location Lt brachial Position Sitting Respiration 18 Pulse 72 Pulse Source Monitor Temp 97.3 F L Temperature Source Temporal Artery Pulse Oximetry (%) 98 Oxygen Delivery Method room air Intake Is patient in pain?: Yes (left foot pain ) Allergies amoxicillin Allergy (Verified 06/04/25 09:50) Unknown Penicillins Allergy (Verified 06/04/25 09:50) Unknown Sulfa (Sulfonamide Antibiotics) Allergy (Verified 06/04/25 09:50) unknown cefaclor (From Ceclor) Adverse Reaction (Verified 06/04/25 09:50) Rash diphenhydramine (From Benadryl) Adverse Reaction (Verified 06/04/25 09:50) Vomiting sulfacetamide Adverse Reaction (Verified 06/04/25 09:50) Vomiting Medications ?Medication ?Instructions ?Recorded ?Confirmed ?Type levothyroxine 75 mcg tablet 75 mcg PO DAILY 12/15/23 0 06/04/25 History acetaminophen 500 mg tablet 1,000 mg PO Q6H PRN 06/04/25 History (Tylenol Extra Strength) loratadine 10 mg tablet (Claritin) 10 mg PO QDAY 05/3006/04/25 History warfarin 4 mg tablet 4 mg PO QDAY 05/30/25 History warfarin 5 mg tablet 5 mg PO QDAY 05/30/25 History cholecalciferol (vitamin D3) 50 50 mcg PO QDAY 5 06/04/25 History mcg (2,000 unit) capsule iron, carbonyl 45 mg tablet 45 mg PO ONCE 06/04/25 History Have you fallen in the past year?: No Central Venous Access Central Venous Access: No Exam Physical Exam Const alert, oriented x3 and no apparent distress Nutritional Appearance: obese Coding Level of Care Code Off vis,new,level 3 Exam Problem Focused Diagnoses History of pulmonary embolism Z86.711 Assessment and Plan Assessment and Plan (1) History of pulmonary embolism: Status: Chronic Comment: July 2023, unprovoked bilateral subsegmental Plan 59-year-old female with unprovoked bilateral subsegmental pulmonary embolism in July 2023. She presented with acute chest pain. Although the patient reports that she often travels with her family driving to [place] around [facility] she could not be sure whether this was the case in 2022 or not. She was initially treated with Eliquis switched to Coumadin due to cost. She has tolerated treatment without bleeding complications Recommendations: 1- The efficacy and safety of indefinite anticoagulation in patients with symptomatic subsegmental pulmonary embolism in absence of provoking risk factorsis controversial. My recommendation is continued indefinite anticoagulation forsecondary prophylaxis since a provoking factor has not been identified nor is eliminated. 2-cancer screening: She has not had a screening mammography since 2017 and I advised her that vigilant screening specially in her case with a grandmother with history of breast cancer is advised. She had a colonoscopy in 2023 that showed a polyp and therefore 3 to 5-year follow-up is advisable. She can discuss this further with her PCP. 3. No further follow-up is needed with hematology. 4-A comprehensive hypercoagulability panel is not warranted since it will not alter the management plan and would require at least 2 weeks interruption of systemic anticoagulation. Impression and recommendations discussed with patient. Spike Dueñas MD Instrument Lens Grinder, [facility] Divisions of Medical Oncology & Hematology Department of Internal Medicine [place] [id number] This note was generated using a voice recognition system software. Although itwas reviewed by the author prior to finalization, it may still contain incorrectwords, spelling, and punctuation that were not noted when reviewing prior to saving. If a clinically significant typo or inaccurately typed phrase is noted, please notify the author. Clinical Quality Measures Falls Risk Screening/Assistive Devices Have you fallen in the past year?: No 06/04/25 1039 <Electronically signed by Spike connell MD> Date _ Spike Dueñas MD Cosigner Signature: Date (if applicable) CC: Dr. Alexis Loo MD ~ [facility] Work Phone: Reason for referral (narrative)No reason for referral information availableBlJohn [facility] Work Phone: Chief Complaint and Reason for Visit Chief Complaint chest pain Chief Complaint chest pain chest pain Chief Complaint chest pain chest pain EORDER Chief Complaint EORDER Anemia Reason for Visit Anemia Chief Complaint Admit Date Amb Documentation May 30, 2025 7:55am NEW - HX OF PE CONSULT STOPPING MED Sept ember 2024 9:17am Reason for Visit Admit Date History of pulmonary embolism June 04, 2025 9:17am Advance Directives No Advanced Directives Records Found Advance Directive Response Recorded Date/ Time Living Will No August 01, 2 023 4:50pm Power of Kitchen Supervisor No August 01, 2023 4:50pm Advance Directive Response Recorded Date/ Time Living Will No August 08 6:40pm Power of Kitchen Supervisor No August 08, 2023 6:40pm Advance Directive Response Recorded Date/ Time Living Will No December 15, 2023 3:12pm Power of Kitchen Supervisor No December 14 3:12pm Family History No Family History Records Found Relationship Condition Age at Onset Recorded Date/T ryann mother Hepatic cirrhosis Unknown Alcohol abuse Unknown Cataract Unknown father Diabetes mellitus Unknown aunt Malignant neoplasm Unknown Not Specified Malignant neoplasm of breast Unknown Summary Purpose Additional Source Comments Goals (unrecognized section and content) Goals may be documented in a n alternate sectionGoals may be documented in an alternate sectionGoals may be documented in an alternate sectionGoals may be documented in an alternate sectionGoals may be documented in an alternate sectionGoals may be documented in an alternate sectionGoals may be documented in an alternate section Care Teams (unrecognized sec tion and content) Team Status: Active Member Role Status Dates Dr. Kellie Hudson MD Family Provider Active Dr. Kellie Hudson MD Primary Care Provider Active Team Status: Inactive Member Role Status Dates Dr. Kellie Hudson MD Primary Care Provider Active Dr. Olaf Castelan MD Emergency Provider Active Team Status: Inactive Member Role Status Dates Dr. Kellie Hudson MD Primary Care Provider Active Ernesto Schmidt MD Emergency Provider Active Team Status: Inactive Member Role Status Dates Dr. Kellie Hudson MD Primary Care Provider Active Dr. Olaf Castelan MD Attending Provider, Emergency Pro vider Active Team Status: Inactive Member Role Status Dates Dr. Kellie Hudson MD Primary Care Provider Active Ernesto Schmidt MD Attending Provider, Emergency Provid er Active Team Status: Inactive Member Role Status Dates Dr. Kellie Hudson MD Primary Care Prov ider, Attending Provider, Referring Provider Active Team Status: Inactive Member Role Status Dates Dr. Kellie Hudson MD Primary Care Provider, Referrin g Provider Active Dr. Dillan Demarco MD Attending Provider Active Team Status: Active Member Role Status Dates Dr. Kellie Hudson MD Primary Care Provider, Referrin g Provider Active Dr. Dillan Demarco MD Attending Provider, Other Provider Active Team Status: Active Member Role/Relationship Status Dates Dr. Alexis Loo MD Primary care physician Active Team Status: Active Member Role/Relationship Status Dates Dr. Kellie Hudson MD Primary care physician Active Start: May 24, 2025 Dr. Alexis Loo MD Attending physician Active Start: May 24, 2025 Team Status: Active Member Role/Relationship Status Dates Dr. Kellie Hudson MD Primary care physician Active Start: May 30, 2025 Jennifer Lozano LPN Attending physician Active Start: May 30, 2025 Team Status: Inactive Member Role/Relationship Status Dates Dr. Alexis Loo MD Primary care physician Active Start: June 04, 2025 End: June 04, 2025 Dr. Alexis Loo MD Referring Provider Active Start: June 04, 2025 End: June 04, 2025 Dr. Spike Dueñas MD Attending physician Active Start: June 04, 2025 End: June 04, 2025 Team Status: Inactive Member Role/Relationship Status Dates Dr. Kellie Hudson MD Primary care physician Active Start: May 24, 2025 End: May 24, 2025 Dr. Alexis Loo MD Attending physician Active Start: May 24, 2025 End: May 24, 2025 INFORMATION SOURCE (unrecogn ized section and content) DATE CREATED AUTHOR 07/03/2025 [facility] FOR RECORDS PERTAINING TO PATIENTS WHO ARE OR HAVE BEEN ENROLLED IN A CHEMICAL DEPENDENCY/SUBSTANCEABUSE PROGRAM, SOME INFORMATION MAY BE OMITTED. This clinical summary was aggregated from multiple sources. Caution should be exercised in using it in the provision of clinical care. This summary normalizes information from multiple sources, and as a consequence, information in this document may materially change the coding, format and clinical context of patient data. In addition, data may be omitted in some cases. CLINICAL DECISIONS SHOULD BE BASED ON THE PRIMARY CLINICAL RECORDS. [employer] provides no warranty or guarantee of the accuracy or completeness of information in this document.
== END | disposition home or self-care (01) ==
LOC: CVS 14:15
PROVIDERS: PCP Family Medicine; Referring Provider Family Medicine; Visit Provider Family Medicine
DX: I73.9 Peripheral vascular disease, unspecified (principal); Z86.711 Personal history of pulmonary embolism
CPT/HCPCS: 93971